=== PATIENT | female | born 1940 | race Caucasian/White ===

== ENCOUNTER 2016-10-05 17:46 | Inpatient (IN) | payer OTHER ==
--- NOTE | 2016-10-05 18:13 | PDOC ---
History of Present Illness <Jose J Almodovar - Last Filed: 10/05/16 18:32> - History of Present Illness Initial Comments: 10/05/16 18:24 76 year old female with a PMHx of HTN, HLD, type 2 diabetes who presents to the ED s/p fall today. The patient states she lost her balance and fell onto her left side. She reports associated pain on her left hip. She did not take any medications for the pain. She denies hitting her head, LOC, dizziness, headache. She denies chest pain, SOB. She denies abdominal pain, nausea, vomiting, diarrhea. Allergies: penicillin Surgeries: right knee replacement <Zulay Frank - Last Filed: 10/05/16 18:41> - General Chief Complaint: Bone Injury Stated Complaint: FALL Time Seen by Provider: 10/05/16 18:11 Past History - Past Medical History Anemia: No Asthma: No Cancer: No Cardiac Disorders: No CVA: No COPD: No CHF: No Dementia: No Diabetes: Yes (TYPE 2) GI Disorders: No Disorders: No HTN: Yes Hypercholesterolemia: Yes Liver Disease: No Seizures: No Thyroid Disease: No - Surgical History Abdominal Surgery: No Appendectomy: No Cardiac Surgery: No Cholecystectomy: No Lung Surgery: No Neurologic Surgery: No Orthopedic Surgery: Yes (PARTIAL KNEE REPLACEMENT RIGHT 2009) - Psycho/Social/Smoking Cessation Hx Anxiety: No Suicidal Ideation: No Smoking History: Never smoked Have you smoked in the past 12 months: No Information on smoking cessation initiated: No Hx Alcohol Use: No Drug/Substance Use Hx: No Substance Use Type: None Hx Substance Use Treatment: No <Jose J Almodovar - Last Filed: 10/05/16 18:32> <Zulay Frank A - Last Filed: 10/05/16 18:41> - Past Medical History Allergies/Adverse Reactions: Allergies Allergy/AdvReac Type Severity Reaction Status Date / Time Penicillins Allergy Severe Verified 10/05/16 18:01 Home Medications: Ambulatory Orders Amlodipine Besylate 5 mg PO BID 01/15/14 Atorvastatin Ca [Lipitor] 30 mg PO HS 01/15/14 Clonazepam 0.25 mg PO BID 01/15/14 Glimepiride 1 mg PO DAILY 01/15/14 Losartan Potassium 100 mg PO DAILY 01/15/14 Metoprolol Succinate [Toprol Xl] 100 mg PO BID 01/15/14 Sertraline HCl 75 mg PO HS 01/15/14 Furosemide 20 mg PO DAILY 10/05/16 Naproxen Sod/Diphenhydram HCl [Aleve Pm Caplet] 1 each PO HS 10/05/16 Review of Systems - Review of Systems Comments:: 10/05/16 18:24 GENERAL/CONSTITUTIONAL: No fever or chills. No weakness. HEAD, EYES, EARS, NOSE AND THROAT: No change in vision. No ear pain or discharge. No sore throat. CARDIOVASCULAR: No chest pain or shortness of breath. RESPIRATORY: No cough, wheezing, or hemoptysis. GASTROINTESTINAL: No nausea, vomiting, diarrhea or constipation. GENITOURINARY: No dysuria, frequency, or change in urination. MUSCULOSKELETAL: (+) left hip pain.. No neck or back pain. SKIN: No rash NEUROLOGIC: No headache, vertigo, loss of consciousness, or change in strength/ sensation. ENDOCRINE: No increased thirst. No abnormal weight change. HEMATOLOGIC/LYMPHATIC: No anemia, easy bleeding, or history of blood clots. ALLERGIC/IMMUNOLOGIC: No hives or skin allergy. <Zulay Frank - Last Filed: 10/05/16 18:41> *Physical Exam - Vital Signs Last Vital Signs Temp Pulse Resp BP Pulse Ox 98.3 F 62 20 154/71 95 10/05/16 18:02 10/05/16 18:02 10/05/16 18:02 10/05/16 18:02 10/05/16 18:02 <Jose J Almodovar - Last Filed: 10/05/16 18:32> - Vital Signs Last Vital Signs Temp Pulse Resp BP Pulse Ox 98.3 F 62 20 154/71 95 10/05/16 18:02 10/05/16 18:02 10/05/16 18:02 10/05/16 18:02 10/05/16 18:02 - Physical Exam Comments: 10/05/16 18:24 GENERAL: Awake, alert, and fully oriented, in no acute distress HEAD: No signs of trauma EYES: PERRLA, EOMI, sclera anicteric, conjunctiva clear ENT: Auricles normal inspection, hearing grossly normal, nares patent, oropharynx clear without exudates. Moist mucosa NECK: Normal ROM, supple, no lymphadenopathy, JVD, or masses LUNGS: Breath sounds equal, clear to auscultation bilaterally. No wheezes, and no crackles HEART: Regular rate and rhythm, normal S1 and S2, no murmurs, rubs or gallops ABDOMEN: Soft, nontender, normoactive bowel sounds. No guarding, no rebound. No masses EXTREMITIES: (+) left leg is externally rotated and shortened. Pulses intact 2+ bilaterally. Normal range of motion, no edema. No clubbing or cyanosis. No cords, erythema, or tenderness NEUROLOGICAL: Cranial nerves II through XII grossly intact. Normal speech, normal gait SKIN: Warm, Dry, normal turgor, no rashes or lesions noted. <Zulay Frank - Last Filed: 10/05/16 18:41> Heart Score/ECG Review #1 10/05/16 18:41 Sinus rhythm with premature complexes at 61 bpm. <Zulay Frank - Last Filed: 10/05/16 18:41> *DC/Admit/Observation/Transfer - Discharge Dispostion Admit: Yes - Attestations Physician Attestion: 10/05/16 18:13 I, Dr. Jose J Almodovar, attest that this document has been prepared under my direction and personally reviewed by me in its entirety. I further attest, that it accurately reflects all work, treatment, procedures and medical decision -making performed by me. <Jose J Almodovar - Last Filed: 10/05/16 18:32> - Attestations Scribe Attestion: 10/05/16 18:24 Documentation prepared by Zulay Frank, acting as medical staff manager for Jose J Almodovar DO. <Zulay Frank - Last Filed: 10/05/16 18:41> Diagnosis at time of Disposition: Hip fracture - Discharge Dispostion Condition at time of disposition: Improved - Referrals Referrals: Dereje Barron MD [Primary Care Provider] -
[2016-10-05] MEDS ORDERED: ONDANSETRON 4 MG/2 ML VIAL IVPUSH ONE (18:21)
[2016-10-05] MEDS ORDERED: morphine CARPU-JECT 4 MG/1 ML DISP.SYRIN IVPUSH ONE (18:21)
[2016-10-05] MEDS ORDERED: morphine CARPU-JECT 4 MG/1 ML DISP.SYRIN ONE (18:32)
[2016-10-05] MEDS ORDERED: ONDANSETRON 4 MG/2 ML VIAL ONE (18:32)
[2016-10-05 19:00] LABS: BASOPHIL 0.4 % (0-2.0); MCH 27.5 pg (25.7-33.7); MEAN CELL VOLUME 83.4 fl (80-96); MEAN PLT VOLUME 8.7 fl (7.5-11.1); NEUTROPHILS 66.1 % (42.8-82.8); PLATELET COUNT 218 K/MM3 (134-434); RDW 14.7 % (11.6-15.6); WHITE BLOOD COUNT 6.9 K/mm3 (4.0-10.0)
[2016-10-05] MEDS ORDERED: SERTRALINE HCL 50 MG TABLET (FP) PO SCH (19:00)
[2016-10-05 19:09] LABS: INR 0.97 (0.82-1.09); PROTHROMBIN TIME (PATIENT) 10.7 SEC (9.98-11.88)
[2016-10-05 19:18] LABS: ALBUMIN 4.2 g/dl (3.4-5.0); ANION GAP 8 (8-16); BILIRUBIN,TOTAL 0.3 mg/dL (0.2-1.0); CO2 29 mmol/L (21-32); CREATININE 0.7 mg/dL (0.55-1.02); GLUCOSE,RANDOM 102 mg/dL (74-106); SGOT/AST 22 U/L (15-37); SGPT/ALT 29 U/L (12-78); TOT PROT 7.4 g/dl (6.4-8.2)
[2016-10-05 19:19] LABS: ALK PHOS 83 U/L (45-117)
[2016-10-05 20:45] LABS: URINE APPEARANCE CLOUDY; URINE BILIRUBIN NEGATIVE (NEGATIVE); URINE BLOOD NEGATIVE (NEGATIVE); URINE COLOR YELLOW; URINE GLUCOSE (UA) NEGATIVE (NEGATIVE); URINE KETONE NEGATIVE (NEGATIVE); URINE LEUK ESTERASE NEGATIVE (NEGATIVE); URINE NITRITE NEGATIVE (NEGATIVE); URINE PROTEIN NEGATIVE (NEGATIVE); URINE UROBILINOGEN NEGATIVE mg/dL (0.2-1.0)
[2016-10-05 21:55] VITALS: BMI 29.5
[2016-10-05] MEDS ORDERED: ATORVASTATIN CA 20 MG TABLET (FP) PO SCH (22:00)
[2016-10-05] MEDS ORDERED: METOPROLOL TARTRATE 50 MG TABLET (FP) PO SCH (22:00)
[2016-10-05] MEDS ORDERED: oxyCODONE HCL 5 MG TABLET PO PRN (22:26)
[2016-10-05] MEDS ORDERED: ACETAMINOPHEN 325 MG TABLET (FP) PO PRN (22:26)
[2016-10-05] MEDS ORDERED: ATORVASTATIN CA 20 MG TABLET (FP) ONE (22:38)
[2016-10-05] MEDS ORDERED: ATORVASTATIN CA 10 MG TABLET (FP) ONE (22:38)
[2016-10-05] MEDS: ATORVASTATIN CA PO SCH (22:41)
[2016-10-05] MEDS: clonazePAM 0.5 MG TABLET PO SCH (22:42)
[2016-10-05] MEDS: SERTRALINE HCL 50 MG TABLET (FP) PO SCH (23:39)
[2016-10-05] MEDS: METOPROLOL TARTRATE 50 MG TABLET (FP) PO SCH (23:39)
[2016-10-06] MEDS: morphine CARPU-JECT 4 MG/1 ML DISP.SYRIN IVPUSH PRN ×3 (00:13→16:12)
[2016-10-06 09:22] LABS: BASOPHIL 0.3 % (0-2.0); EOSINOPHIL 0.4 % (0-4.5); MCH 28.1 pg (25.7-33.7); MCHC 33.6 g/dl (32.0-36.0); MEAN CELL VOLUME 83.5 fl (80-96); MEAN PLT VOLUME 8.7 fl (7.5-11.1); NEUTROPHILS 73.9 % (42.8-82.8); PLATELET COUNT 205 K/MM3 (134-434); RDW 14.5 % (11.6-15.6); WHITE BLOOD COUNT 8.4 K/mm3 (4.0-10.0)
[2016-10-06] MEDS: LOSARTAN POTASSIUM 50 MG TABLET (FP) PO SCH (12:00)
[2016-10-06] MEDS: METOPROLOL TARTRATE 50 MG TABLET (FP) PO SCH ×2 (12:01→21:00)
[2016-10-06] MEDS: amLODIPine BESYLATE 5 MG TABLET (FP) PO SCH (12:01)
[2016-10-06] MEDS: clonazePAM 0.5 MG TABLET PO SCH ×2 (12:02→21:01)
--- NOTE | 2016-10-06 13:51 | HP ---
Admitting History and Physical - Primary Care Physician PCP: Dereje Barron (Dr Raysa krause) - Admission Chief Complaint: pain Lt hip (following fall) History of Present Illness: 76 year old female with a PMHx of HTN, HLD, type 2 diabetes who presents to the ED s/p fall which took place yesterday when she lost her balance while doing yard work. The patient states fell onto her left side. She reports associated pain on her left hip. She did not take any medications for the pain. She denies hitting her head, LOC, dizziness, headache. She denies chest pain, SOB. She denies abdominal pain, nausea, vomiting, diarrhea. She was otherwise well prior to this incident. History Source: Patient Limitations to Obtaining History: No Limitations - Past Medical History Cardiovascular: Yes: HTN ...: No Psych: Yes: Anxiety Musculoskeletal: Yes: Osteoarthritis Endocrine: Yes: Diabetes Mellitus - Past Surgical History Past Surgical History: Yes: Joint Replacement - Smoking History Smoking history: Never smoked Have you smoked in the past 12 months: No - Alcohol/Substance Use Hx Alcohol Use: No History of Substance Use: reports: None - Social History Usual Living Arrangement: Yes: With Parent ADL: Independent History of Recent Travel: No Home Medications - Allergies Allergies/Adverse Reactions: Allergies Allergy/AdvReac Type Severity Reaction Status Date / Time Penicillins Allergy Severe Verified 10/05/16 18:01 - Home Medications Home Medications: Ambulatory Orders Amlodipine Besylate 5 mg PO BID 01/15/14 Atorvastatin Ca [Lipitor] 30 mg PO HS 01/15/14 Clonazepam 0.25 mg PO BID 01/15/14 Glimepiride 1 mg PO DAILY 01/15/14 Losartan Potassium 100 mg PO DAILY 01/15/14 Metoprolol Succinate [Toprol Xl] 100 mg PO BID 01/15/14 Sertraline HCl 75 mg PO HS 01/15/14 Furosemide 20 mg PO DAILY 10/05/16 Naproxen Sod/Diphenhydram HCl [Aleve Pm Caplet] 1 each PO HS 10/05/16 Family Disease History - Family Disease History Family History: Unremarkable Review of Systems - Review of Systems Constitutional: reports: No Symptoms Eyes: reports: No Symptoms HENT: reports: No Symptoms Neck: reports: No Symptoms Cardiovascular: reports: No Symptoms Respiratory: reports: No Symptoms Gastrointestinal: reports: No Symptoms Genitourinary: reports: No Symptoms Breasts: reports: No Symptoms Reported Musculoskeletal: reports: Extremity Pain Integumentary: reports: No Symptoms Neurological: reports: No Symptoms Endocrine: reports: No Symptoms Hematology/Lymphatic: reports: No Symptoms Psychiatric: reports: No Symptoms Physical Examination Vital Signs: Vital Signs Temperature 98.2 F 10/06/16 08:00 Pulse Rate 72 10/06/16 08:00 Respiratory Rate 18 10/06/16 08:00 Blood Pressure 129/69 10/06/16 08:00 O2 Sat by Pulse Oximetry (%) 97 10/05/16 21:58 Findings/Remarks: skin--no open wounds appreciated head--NC eyes--midline, eomi oral--no droop/muc lesions neck--no masses appreciated lungs--grossly clear/unlabored resp heart--RR breasts--(def to PCP) abd--soft, NT, ND ext--LLE; shortened and ext rotated; Pedal pulses palpated; no edema neuro--alert; coherent; lucid; speech is fluent; cognition intact; no gross motor/sens deficits Labs: CBC, BMP 10/06/16 06:00 CBCD WBC 8.4 K/mm3 (4.0-10.0) 10/06/16 06:00 RBC 4.29 M/mm3 (3.60-5.2) 10/06/16 06:00 Hgb 12.0 GM/dL (10.7-15.3) 10/06/16 06:00 Hct 35.9 % (32.4-45.2) 10/06/16 06:00 MCV 83.5 fl (80-96) 10/06/16 06:00 MCHC 33.6 g/dl (32.0-36.0) 10/06/16 06:00 RDW 14.5 % (11.6-15.6) 10/06/16 06:00 Plt Count 205 K/MM3 (134-434) 10/06/16 06:00 MPV 8.7 fl (7.5-11.1) 10/06/16 06:00 CMP Sodium 140 mmol/L (136-145) 10/05/16 18:20 Potassium 3.4 mmol/L (3.5-5.1) L D 10/05/16 18:20 Chloride 103 mmol/L (98-107) 10/05/16 18:20 Carbon Dioxide 29 mmol/L (21-32) 10/05/16 18:20 Anion Gap 8 (8-16) 10/05/16 18:20 BUN 23 mg/dL (7-18) H 10/05/16 18:20 Creatinine 0.7 mg/dL (0.55-1.02) D 10/05/16 18:20 Creat Clearance w eGFR > 60 (>60) 10/05/16 18:20 Random Glucose 102 mg/dL (74-106) D 10/05/16 18:20 Calcium 9.0 mg/dL (8.5-10.1) 10/05/16 18:20 Total Bilirubin 0.3 mg/dL (0.2-1.0) D 10/05/16 18:20 AST 22 U/L (15-37) 10/05/16 18:20 ALT 29 U/L (12-78) 10/05/16 18:20 Alkaline Phosphatase 83 U/L (45-117) 10/05/16 18:20 Total Protein 7.4 g/dl (6.4-8.2) 10/05/16 18:20 Albumin 4.2 g/dl (3.4-5.0) 10/05/16 18:20 INR, PTT INR 0.97 (0.82-1.09) 10/05/16 18:20 Urine Test Results Urine Color Yellow 10/05/16 18:20 Urine Appearance Cloudy 10/05/16 18:20 Urine pH 8.0 (5.0-8.0) D 10/05/16 18:20 Ur Specific [place] 1.015 (1.005-1.025) 10/05/16 18:20 Urine Protein Negative (NEGATIVE) 10/05/16 18:20 Urine Glucose (UA) Negative (NEGATIVE) 10/05/16 18:20 Urine Ketones Negative (NEGATIVE) 10/05/16 18:20 Urine Blood Negative (NEGATIVE) 10/05/16 18:20 Urine Nitrite Negative (NEGATIVE) 10/05/16 18:20 Urine Bilirubin Negative (NEGATIVE) 10/05/16 18:20 Ur Leukocyte Esterase Negative (NEGATIVE) 10/05/16 18:20 Imaging - Results Chest X-ray: Report Reviewed X-ray: Report Reviewed (Lt hip Fx) EKG: Report Reviewed Problem List - Problems (1) Hip fracture Assessment/Plan: 2nd mechanical fall; will need surg intervention & rehab Code(s): S72.009A - FRACTURE OF UNSP PART OF NECK OF UNSP FEMUR, INIT Qualifiers: Encounter type: initial encounter Fracture type: closed Laterality : left Qualified Code(s): S72.002A - Fracture of unspecified part of neck of left femur, initial encounter for closed fracture (2) Hypertensive cardiovascular disease Assessment/Plan: BP and clinical condition appear to be stable. Will have cardiology eval done pre-op; cont BB & ARB Code(s): I11.9 - HYPERTENSIVE HEART DISEASE WITHOUT HEART FAILURE Qualifiers: Heart failure presence: without heart failure Qualified Code(s): I11.9 - Hypertensive heart disease without heart failure (3) Diabetes Assessment/Plan: controlled with glimepiride; will need to suspend use pre-op and check BGM Code(s): E11.9 - TYPE 2 DIABETES MELLITUS WITHOUT COMPLICATIONS Qualifiers: Diabetes mellitus type: type 2 Diabetes mellitus complication status: without complication (4) Affective disorder Assessment/Plan: mixed, anxiety; but seems stable at this point. Controlled with SSRI and clonazapam Code(s): F39 - UNSPECIFIED MOOD [AFFECTIVE] DISORDER Assessment/Plan 76 y/o F with hx of Htn & DM who now has a Lt Hip fx requiring surgery. ~~~~~~~~~~~~~~~~~~~~~~~~~~ Dr Tabares............1 hr
[2016-10-06] MEDS ORDERED: KCL 10 MEQ IVPB 100 ML IVPB SCH (14:30)
[2016-10-06 16:57] LABS: ANION GAP 7 (8-16); CALCIUM 8.5 mg/dL (8.5-10.1); CO2 29 mmol/L (21-32); CREATININE 0.6 mg/dL (0.55-1.02); GLUCOSE,RANDOM 112 mg/dL (74-106)
--- NOTE | 2016-10-06 18:21 | PN ---
Progress Note (short form) - Note Progress Note: Pt seen and examined. She fell in the garden this morning. Could not ambulate. C /o pain left thigh/femur. PE LLE is shortened and externally rotated Grossly NVI Good ROM with min pain at the left knee, ankle, foot, toes No sig swelling. Xrays Show a Imp As above: left femur subtroch fracture, needs surgical fixation Rec Medical and cardiac clearance done. NPO after midnight Rec a Left Long Gamma Nail, intramedullary nail. Surgery tomorrow morning, outside equipment needs to come in. I spoke to the [facility] trauma rep, and nursing corrugator supervisor.
[2016-10-06] MEDS ORDERED: ATORVASTATIN CA 20 MG TABLET (FP) ONE (20:56)
[2016-10-06] MEDS ORDERED: ATORVASTATIN CA 10 MG TABLET (FP) ONE (20:56)
[2016-10-06] MEDS: ATORVASTATIN CA PO SCH (21:00)
[2016-10-06] MEDS: SERTRALINE HCL 50 MG TABLET (FP) PO SCH (21:01)
[2016-10-07] MEDS: morphine CARPU-JECT 4 MG/1 ML DISP.SYRIN IVPUSH PRN ×2 (03:15→20:30)
[2016-10-07 08:10] LABS: MCH 28.5 pg (25.7-33.7); MCHC 33.9 g/dl (32.0-36.0); MEAN CELL VOLUME 83.9 fl (80-96); MEAN PLT VOLUME 8.5 fl (7.5-11.1); PLATELET COUNT 197 K/MM3 (134-434); RDW 14.6 % (11.6-15.6)
[2016-10-07 08:33] LABS: ANION GAP 5 (8-16); CALCIUM 8.2 mg/dL (8.5-10.1); CO2 31 mmol/L (21-32); GLUCOSE,RANDOM 111 mg/dL (74-106)
[2016-10-07 08:34] LABS: CREATININE 0.6 mg/dL (0.55-1.02)
[2016-10-07] MEDS: amLODIPine BESYLATE 5 MG TABLET (FP) PO SCH ×2 (08:48→09:48)
[2016-10-07] MEDS: LOSARTAN POTASSIUM 50 MG TABLET (FP) PO SCH ×2 (08:48→09:47)
[2016-10-07] MEDS: METOPROLOL TARTRATE 50 MG TABLET (FP) PO SCH ×3 (08:49→22:29)
[2016-10-07] MEDS: clonazePAM 0.5 MG TABLET PO SCH ×2 (09:47→22:29)
[2016-10-07] MEDS ORDERED: ONDANSETRON 4 MG/2 ML VIAL IVPUSH PRN ×2 (11:39→16:34)
[2016-10-07] MEDS ORDERED: MIDAZOLAM HCL 2 MG/2 ML SINGLE DOSE VIAL ONE ×2 (11:55→14:21)
[2016-10-07] MEDS ORDERED: CLINDAMYCIN PHOSPHATE 600 MG/4 ML VIAL ONE (12:29)
[2016-10-07] MEDS ORDERED: PHENYLEPHRINE HCL 10 MG/1 ML SINGLE DOSE VIAL ONE (12:29)
[2016-10-07] MEDS ORDERED: CLINDAMYCIN 600 MG PREMIX BAG IVPB ONE (12:34)
[2016-10-07] MEDS ORDERED: PROPOFOL 20 ML ONE (12:36)
[2016-10-07] MEDS ORDERED: ePHEDrine SULFATE 50 MG/1 ML AMPULE ONE (15:22)
--- NOTE | 2016-10-07 15:24 | OP ---
Operative Note - Note: Operative Date: 10/07/16 Pre-Operative Diagnosis: left femur, comminuted, displaced proximal femur fracture Operation: left femur ORIF with intramedullary nail Implants: Sutton Gamma 3 Titanium 340mm IM obed, 75mm lag screw, 35mm distal locking screw Surgeon: Greg Whitman Anesthesiologist/HIV NURSE: Noreen Temple Anesthesia: General, Spinal Estimated Blood Loss (mls): 500 Blood Volume Replaced (mls): 250 Fluid Volume Replaced (mls): 1,000 Operative Report Dictated: Yes
--- NOTE | 2016-10-07 15:25 | PN ---
Progress Note (short form) - Note Progress Note: S: 76 year old Portugese female with known case of hypertension, NIDDM, hypercholesterolemia, underwent surgery for a fracture of the left femur. Patient seen in the recovery room, still under the effects of anesthesia and had significant blood loss according to the orthopedic surgeon. The patient is hypertensive and is receiving fluid replaced and waiting to be transfused with another unit of packed cells. Active Medications Generic Name Dose Route Start Last Admin Trade Name Freq PRN Reason Stop Dose Admin Amlodipine Besylate 5 mg 10/06/16 10:00 10/07/16 09:48 Norvasc - PO Not Given DAILY DMITRIY Atorvastatin Calcium 20 mg/ 30 mg 10/05/16 22:30 10/06/16 21:00 Atorvastatin Calcium 10 mg PO 30 mg HS DMITRIY Administration Clonazepam 0.25 mg 10/05/16 22:00 10/07/16 09:47 Klonopin - PO Not Given BID DMIRTIY Losartan Potassium 100 mg 10/06/16 10:00 10/07/16 09:47 Cozaar - PO Not Given DAILY DMITRIY Metoprolol Tartrate 100 mg 10/06/16 10:00 10/07/16 09:47 Lopressor - PO Not Given DAILY DMITRIY Metoprolol Tartrate 50 mg 10/06/16 22:00 10/06/16 21:00 Lopressor - PO 50 mg HS DMITRIY Administration Morphine Sulfate 4 mg 10/05/16 23:56 10/07/16 03:15 Morphine Injection - IVPUSH 4 mg Q6H PRN Administration PAIN Ondansetron HCl 4 mg 10/07/16 11:39 Zofran Injection IVPUSH 10/07/16 17:40 Q6H PRN NAUSEA AND/OR VOMITING Sertraline HCl 50 mg 10/05/16 23:15 10/06/16 21:01 Zoloft - PO 50 mg HS DMITRIY Administration O: 76 year old female was in no acute distress. No pallor, cyanosis, clubbing, or jaundice, slightly clammy but warm. Blood pressure 82/59. Last Vital Signs Temp Pulse Resp BP Pulse Ox 98.4 F 85 20 137/50 100 10/07/16 08:00 10/07/16 08:00 10/07/16 08:00 10/07/16 08:00 10/07/16 09:00 NECK: Supple, no JVD, negative HJR, carotids were equal and upstrokes were normal, no thyromegaly appreciated. HEART: PMI was in the 5th intercostal space, no heaves or thrills, S1 and S2 were normal. No murmurs or gallops were appreciated. LUNGS: Clear on auscultation bilaterally. ABDOMEN: Soft, nontender, no hepatosplenomegaly appreciated, and no palpable masses were felt. EXTREMITIES: No calf tenderness or dependent edema. Pulses are normal. CBC, BMP 10/07/16 06:20 10/07/16 06:20 Laboratory Results - last 24 hr 10/06/16 10/06/16 10/06/16 16:15 16:23 20:48 WBC RBC Hgb Hct MCV MCH MCHC RDW Plt Count MPV Sodium 138 Potassium 3.8 Chloride 102 Carbon Dioxide 29 Anion Gap 7 L BUN 19 H Creatinine 0.6 POC Glucometer 121 182 Random Glucose 112 H Calcium 8.5 Blood Type Crossmatch IS Only 10/07/16 10/07/16 10/07/16 05:58 06:20 06:20 WBC 8.0 RBC 4.17 Hgb 11.9 Hct 35.0 MCV 83.9 MCH 28.5 MCHC 33.9 RDW 14.6 Plt Count 197 MPV 8.5 Sodium 139 Potassium 3.9 Chloride 103 Carbon Dioxide 31 Anion Gap 5 L BUN 17 Creatinine 0.6 POC Glucometer 120 Random Glucose 111 H Calcium 8.2 L Blood Type Crossmatch IS Only 10/07/16 08:45 WBC RBC Hgb Hct MCV MCH MCHC RDW Plt Count MPV Sodium Potassium Chloride Carbon Dioxide Anion Gap BUN Creatinine POC Glucometer Random Glucose Calcium Blood Type O POSITIVE Crossmatch IS Only See Detail ECG 10/07/16 15:37 Sinus rhythm, IACD, nonspecific ST abnormalities involving the lateral precardial leads Impression: 1. Hypotension, most likely related to blood and volume loss. 2. S/p repair of fracture of the femur Recommendations: 1. ECG stat and in AM 2. CKMI now, in six hours, and in AM 3. CMP and follow up CBCs 4. Monitor on telemetry Prognosis: Guarded Documentation prepared by Bety Ramos, acting as a medical technicians for Ryan Walker MD. Problem List - Problems (1) Hip fracture Code(s): S72.009A - FRACTURE OF UNSP PART OF NECK OF UNSP FEMUR, INIT Qualifiers: Encounter type: initial encounter Fracture type: closed Laterality : left Qualified Code(s): S72.002A - Fracture of unspecified part of neck of left femur, initial encounter for closed fracture (2) Non-insulin dependent type 2 diabetes mellitus Code(s): E11.9 - TYPE 2 DIABETES MELLITUS WITHOUT COMPLICATIONS (3) Hypotension Code(s): I95.9 - HYPOTENSION, UNSPECIFIED
--- NOTE | 2016-10-07 15:55 | EKG ---
Test Reason : Blood Pressure : / mmHG Vent. Rate : 101 BPM Atrial Rate : 101 BPM P-R Int : 160 ms QRS Dur : 072 ms QT Int : 372 ms P-R-T Axes : 045 038 018 degrees QTc Int : 482 ms SINUS TACHYCARDIA WITH PREMATURE ATRIAL COMPLEXES SLIGHT UPSLOPING ST DEPRESSIONS IN V5-V6 WHEN COMPARED WITH ECG OF 05-OCT-2016 18:37, VENT. RATE HAS INCREASED BY 40 BPM CORRELATE CLINICALLY AND REPEAT TRACING INDICATED Confirmed by ERNESTO BENEDICT MD ([id number]) on 10/07/2016 3:55:18 PM Referred By: Don IBRAHIM Confirmed By:ERNESTO BENEDICT MD
[2016-10-07] MEDS ORDERED: ONDANSETRON 4 MG/2 ML VIAL ONE (16:22)
[2016-10-07 17:26] LABS: CPK 816 IU/L (26-192); TROPONIN I < 0.02 ng/ml (0.00-0.05)
[2016-10-07 17:40] LABS: ANION GAP 10 (8-16); CALCIUM 7.7 mg/dL (8.5-10.1); CO2 27 mmol/L (21-32); GLUCOSE,RANDOM 131 mg/dL (74-106)
--- NOTE | 2016-10-07 18:46 | EKG ---
Test Reason : Blood Pressure : / mmHG Vent. Rate : 061 BPM Atrial Rate : 061 BPM P-R Int : 202 ms QRS Dur : 088 ms QT Int : 472 ms P-R-T Axes : 062 054 027 degrees QTc Int : 475 ms SINUS RHYTHM WITH PREMATURE ATRIAL COMPLEXES OTHERWISE NORMAL ECG WHEN COMPARED WITH ECG OF 15-JAN-2014 11:43, PREMATURE ATRIAL COMPLEXES ARE NOW PRESENT Confirmed by ERNESTO BENEDICT MD ([id number]) on 10/07/2016 6:46:17 PM Referred By: Confirmed By:ERNESTO BENEDICT MD
[2016-10-07 19:23] LABS: BASOPHIL 0.3 % (0-2.0); EOSINOPHIL 0.1 % (0-4.5); MCH 27.6 pg (25.7-33.7); MEAN CELL VOLUME 83.5 fl (80-96); MEAN PLT VOLUME 8.3 fl (7.5-11.1); NEUTROPHILS 82.3 % (42.8-82.8); PLATELET COUNT 209 K/MM3 (134-434); WHITE BLOOD COUNT 11.1 K/mm3 (4.0-10.0)
--- NOTE | 2016-10-07 19:40 | CONS ---
DATE OF CONSULTATION: 10/06/2016 REQUESTING PHYSICIAN: Jass Tabares MD CHIEF COMPLAINT: Fracture of the left hip. HISTORY: The patient is a 76-year-old Bengali female with a history of hypertension, [id number] diabetes mellitus, hypercholesterolemia, history of depression and anxiety disorder who slipped at home and fell fracturing her left hip. The patient denies having chest pain or discomfort either at rest or with exertion. No exertional dyspnea, paroxysmal or nocturnal dyspnea, or orthopnea. No history of palpitations, lightheadedness, dizziness, presyncope, or syncope reported. No cough or expectoration. There is no history of pedal edema. PAST HISTORY: As mentioned in the history of present illness. SURGICAL HISTORY: Partial right knee replacement. SOCIAL HISTORY: She is a . Has 1 son. She is a nonsmoker. Denies use of alcohol. Has 1 cup of coffee. FAMILY HISTORY: Father from myocardial infarction. Mother has high blood pressure. She has no siblings. ALLERGIES: PENICILLIN. MEDICATIONS: 1. 100 mg p.o. daily. 2. Metoprolol Tartrate 100 mg in the morning and 50 mg in the evening. 3. Amlodipine 5 mg p.o. daily. 4. Atorvastatin 30 mg p.o. daily. 5. Morphine 4 mg IV q.6 p.r.n. 6. Zoloft 50 mg p.o. daily nightly. 7. Klonopin 0.25 mg p.o. b.i.d. 8. Potassium chloride 10 mEq IV piggyback single dose. REVIEW OF SYSTEMS: Constitutional: No history of chills, fever, or night sweats. No history of unintentional weight loss. HEENT: History of chronic intermittent headaches. No history of diplopia, blurred vision. No history of epistaxis, hoarseness, tinnitus, or deafness reported. Cardiovascular: See history of present illness. Respiratory: History of cough, expectoration, or hemoptysis. Gastrointestinal: No history of nausea, melena, or hematemesis. No history of abdominal pain or discomfort. No history of change in bowel habits. Endocrine: See history of present illness. No history of polyuria or polydipsia. No history of intolerance of cold or warm weather. Central Nervous System: No history of lightheadedness, dizziness, or syncope. No history of seizures or focal weakness. Genitourinary: No history of dysuria, frequency, or hematuria. Hematological/Lymphatics: No history of ecchymosis, bleeding, or anemia. No history of lymphadenopathy. PHYSICAL EXAMINATION: General: A 76-year-old female who is in no acute distress. No pallor, cyanosis, clubbing, or jaundice. Vital Signs: Blood pressure 129/69 mmHg, pulse 72 beats per minute and regular. The patient is afebrile. Respirations are 18 per minute. Weight is not recorded. Neck: Supple. No jugular venous distention. Carotids are equal, and upstrokes are normal. No bruits are heard, and no thyromegaly is present. Heart: PMI is in the 5th intercostal space. No heaves or thrills. S1, S2 are normal. Ejection systolic murmur grade 2/6 is heard at the 2nd right intercostal space ending in early systole and was also heard along the left sternal border. No diastolic murmur or gallops are heard. Lungs: Clear on auscultation. Chest: Normal AP diameter. Expansion grossly appears to be symmetrical. Abdomen: Protuberant, soft, and nontender. No hepatosplenomegaly or palpable masses are felt. Bowel sounds are active. No bruits are heard. Extremities: No calf tenderness or dependent edema. Left lower extremity is externally rotated. Pulses are equal. LABORATORY DATA: October 06, 2016. CBC: WBC count 8400, hemoglobin 12 g/dL, platelet count 205,000. Normal differential. Chemistry October 05, 2016: Sodium 140, potassium 3.4, chloride 103, CO2 is 29 mmol/L, calcium 9 mg/dL. Normal liver function tests. Glucose on October 06 was 131 mg/dL. X-ray chest. A single view of the chest revealed little change since January 15, 2014. There is a large heart, scoliosis, degenerative changes, and clear lung harrington. The angles are soft, and the soft tissue is intact. An acute process is not seen. Correlation recommended. ECG dated October 05, 2016: Sinus rhythm with intra-atrial conduction abnormality. Borderline 1st-degree AV block. Occasional supraventricular premature beats that are single. Nonspecific ST abnormality. No previous ECG was available for comparison. IMPRESSION: 1. Hypertension, hypertensive cardiovascular disease currently normotensive. 2. Hypercholesterolemia. 3. Fpp-[id number] diabetes mellitus. 4. Supraventricular premature beats. 5. Systolic murmur compatible with aortic valvular disease most likely aortic sclerosis. 6. Left hip fracture. 7. History of depression. 8. Hypokalemia. RECOMMENDATION: 1. Recheck serum potassium levels. 2. INR, PTT. 3. The patient must receive all her antihypertensive therapy with a sip of water on the day of the contemplated procedure. 4. Would suggest postoperative monitoring on telemetry. 5. . 6. Postoperative ECG. 7. There appears to be no absolute contraindication to the contemplated procedure. Thank you for your referral. Sincerely, ERNESTO BENEDICT M.D. [id number]
[2016-10-07] MEDS: DEXTROSE 5%-0.45% SALINE 1,000 ML IV SCH (20:02)
[2016-10-07] MEDS: ONDANSETRON 4 MG/2 ML VIAL IVPB PRN (20:03)
[2016-10-07] MEDS ORDERED: PANTOPRAZOLE SODIUM 40 MG in SODIUM CHLORIDE 100 ML IVPB SCH (21:00)
[2016-10-07] MEDS ORDERED: ATORVASTATIN CA 20 MG TABLET (FP) ONE (22:10)
[2016-10-07] MEDS ORDERED: ATORVASTATIN CA 10 MG TABLET (FP) ONE (22:10)
[2016-10-07] MEDS: PANTOPRAZOLE SODIUM 40 MG/100 ML PRE-DOCKED IVPB SCH (22:18)
[2016-10-07] MEDS: ATORVASTATIN CA PO SCH (22:19)
[2016-10-07] MEDS: SERTRALINE HCL 50 MG TABLET (FP) PO SCH (22:19)
[2016-10-07 22:33] LABS: CPK 1198 IU/L (26-192); TROPONIN I < 0.02 ng/ml (0.00-0.05)
--- NOTE | 2016-10-08 00:02 | PN ---
Progress Note, Physician History of Present Illness: 76 y/o who fell in her backyard and sustained a fracture of her left femur and underwent internal fixation today. Continues to have pain at site of surgery and is being treated with MS, Became nauseous and was given Zofran for relief. - Current Medication List Current Medications: Active Medications Amlodipine Besylate (Norvasc -) 5 mg PO DAILY [facility] Atorvastatin Calcium 20 mg/ (Atorvastatin Calcium 10 mg) [address] [facility] Last Admin: 10/07/16 22:19 Dose: 30 mg Clonazepam (Klonopin -) 0.25 mg PO BID [facility] Last Admin: 10/07/16 22:29 Dose: 0.25 mg Dextrose/Sodium Chloride (D5-1/2ns -) 1,000 mls @ 85 mls/hr IV ASDIR [facility] Last Admin: 10/07/16 20:02 Dose: Not Given Losartan Potassium (Cozaar -) 100 mg PO DAILY [facility] Metoprolol Tartrate (Lopressor -) [address] [facility] Last Admin: 10/07/16 22:29 Dose: Not Given Metoprolol Tartrate (Lopressor -) 100 mg PO DAILY [facility] Morphine Sulfate (Morphine Injection -) 4 mg IVPUSH Q6H PRN PRN Reason: PAIN Last Admin: 10/07/16 20:30 Dose: 4 mg Ondansetron HCl (Zofran Injection) 4 mg IVPB Q6H PRN PRN Reason: NAUSEA AND/OR VOMITING Last Admin: 10/07/16 20:03 Dose: 4 mg Pantoprazole Sodium (Protonix 40mg Ivpb (Pre-Docked)) 40 mg IVPB DAILY [facility] Last Admin: 10/07/16 22:18 Dose: 40 mg Sertraline HCl (Zoloft -) [address] [facility] Last Admin: 10/07/16 22:19 Dose: 50 mg - Objective Vital Signs: Vital Signs Temperature 97.6 F 10/07/16 18:30 Pulse Rate 79 10/07/16 18:30 Respiratory Rate 18 10/07/16 18:30 Blood Pressure 122/50 10/07/16 18:30 O2 Sat by Pulse Oximetry (%) 98 10/07/16 18:30 Constitutional: Yes: Well Nourished, Calm, Moderate Distress Eyes: Yes: WNL, Conjunctiva Clear, EOM Intact HENT: Yes: WNL Neck: Yes: Supple, Trachea Midline Cardiovascular: Yes: Regular Rate and Rhythm, S1, S2 Respiratory: Yes: WNL, Regular, CTA Bilaterally Gastrointestinal: Yes: Normal Bowel Sounds, Soft Genitourinary: Yes: WNL Breast(s): Yes: WNL Musculoskeletal: Yes: WNL Edema: No Peripheral Pulses WNL: Yes Integumentary: Yes: WNL Neurological: Yes: Alert, Oriented ...Motor Strength: WNL Psychiatric: Yes: Alert, Oriented Labs: CBC, BMP 10/07/16 19:15 10/07/16 16:00 INR, PTT INR 0.97 (0.82-1.09) 10/05/16 18:20 - ....Imaging X-ray: Report Reviewed, Image Reviewed Problem List - Problems (1) Hypertensive cardiovascular disease Code(s): I11.9 - HYPERTENSIVE HEART DISEASE WITHOUT HEART FAILURE Qualifiers: Heart failure presence: without heart failure Qualified Code(s): I11.9 - Hypertensive heart disease without heart failure (2) Fracture, femur closed, shaft Assessment/Plan: underwent internal fixation Code(s): S72.309A - UNSP FRACTURE OF SHAFT OF UNSP FEMUR, INIT FOR CLOS FX (3) Affective disorder Assessment/Plan: is on clonazepam and zoloft and doing well Code(s): F39 - UNSPECIFIED MOOD [AFFECTIVE] DISORDER (4) Non-insulin dependent type 2 diabetes mellitus Assessment/Plan: well controlled with glimepiride Code(s): E11.9 - TYPE 2 DIABETES MELLITUS WITHOUT COMPLICATIONS Assessment/Plan imp : Fracture left femur shaft Hypertension Anxiety disorder Diabetes Mellitus type II Underwent internal fixation today succesfully.
[2016-10-08] MEDS: morphine CARPU-JECT 4 MG/1 ML DISP.SYRIN IVPUSH PRN ×3 (05:25→16:57)
[2016-10-08 08:39] LABS: TROPONIN I < 0.02 ng/ml (0.00-0.05)
[2016-10-08 08:42] LABS: CPK 1303 IU/L (26-192)
[2016-10-08 09:12] LABS: BASOPHIL 0.3 % (0-2.0); EOSINOPHIL 0.2 % (0-4.5); MCH 28.2 pg (25.7-33.7); MEAN CELL VOLUME 82.9 fl (80-96); MEAN PLT VOLUME 9.7 fl (7.5-11.1); NEUTROPHILS 75.5 % (42.8-82.8); PLATELET COUNT 137 K/MM3 (134-434); WHITE BLOOD COUNT 7.9 K/mm3 (4.0-10.0)
[2016-10-08 09:22] LABS: ALBUMIN 2.6 g/dl (3.4-5.0); ANION GAP 9 (8-16); BILIRUBIN,TOTAL 0.6 mg/dL (0.2-1.0); CALCIUM 7.6 mg/dL (8.5-10.1); CO2 24 mmol/L (21-32); CREATININE 0.8 mg/dL (0.55-1.02); GLUCOSE,RANDOM 172 mg/dL (74-106); SGOT/AST 41 U/L (15-37); SGPT/ALT 27 U/L (12-78)
[2016-10-08 09:25] LABS: ALK PHOS 46 U/L (45-117)
--- NOTE | 2016-10-08 09:28 | PN ---
Progress Note (short form) - Note Progress Note: Ortho Pt seen and examined s/p left IM gamma nail Selected Entries 10/08/16 05:18 Temperature 98.7 F Pulse Rate 102 H Respiratory 20 Rate Blood Pressure 118/60 Laboratory Tests 10/08/16 07:40 WBC 7.9 Hgb 10.0 L D Hct 29.4 L D Plt Count 137 D dressing c/d/i, calf soft, nt nvi a/p PT, PWB dvt ppx pain control d/c planning
--- NOTE | 2016-10-08 09:49 | EKG ---
Test Reason : Blood Pressure : / mmHG Vent. Rate : 103 BPM Atrial Rate : 103 BPM P-R Int : 158 ms QRS Dur : 080 ms QT Int : 364 ms P-R-T Axes : 035 018 002 degrees QTc Int : 476 ms SINUS TACHYCARDIA WITH PREMATURE ATRIAL COMPLEXES OTHERWISE NORMAL ECG WHEN COMPARED WITH ECG OF 07-OCT-2016 15:37, T WAVE VARIATION Confirmed by CRISTINO TEJADA MD ([id number]) on 10/08/2016 9:49:03 AM Referred By: SHEIK OROZCO DRH Confirmed By:CRISTINO TEJADA MD
[2016-10-08] MEDS: amLODIPine BESYLATE 5 MG TABLET (FP) PO SCH (11:03)
[2016-10-08] MEDS: LOSARTAN POTASSIUM 50 MG TABLET (FP) PO SCH (11:04)
[2016-10-08] MEDS: clonazePAM 0.5 MG TABLET PO SCH ×2 (11:04→22:10)
[2016-10-08] MEDS: METOPROLOL TARTRATE 50 MG TABLET (FP) PO SCH ×2 (11:04→22:11)
[2016-10-08] MEDS: ONDANSETRON 4 MG/2 ML VIAL IVPB PRN ×2 (11:05→16:58)
[2016-10-08] MEDS: PANTOPRAZOLE SODIUM 40 MG/100 ML PRE-DOCKED IVPB SCH (11:05)
--- NOTE | 2016-10-08 13:14 | PN ---
Progress Note (short form) - Note Progress Note: Anesthesia post op note, POD#1 Pat seen and examined. S/P ORIF left femur under Spinal. VSS. Motor and sensory lower extremities,intact bilaterally.No apparent post anesthesia complications.Signed off.
[2016-10-08] MEDS: DEXTROSE 5%-0.45% SALINE 1,000 ML IV SCH (18:21)
--- NOTE | 2016-10-08 19:21 | OP ---
DATE OF OPERATION: 10/07/2016 PREOPERATIVE DIAGNOSIS: Left femur segmental displaced proximal diaphysis fracture. POSTOPERATIVE DIAGNOSIS: Left femur segmental displaced proximal diaphysis fracture. PROCEDURE: Left femur open reduction internal fixation with intramedullary nail. SURGEON: Omar Moreno MD HEALTH INFORMATION CODER: None. ANESTHESIA: Dr. Purdy, spinal anesthesia and MAC anesthesia. DRAINS: None. COMPLICATIONS: None. BLOOD LOSS: 500 mL. BLOOD GIVEN: 1 unit packed red blood cells in the operating room and 1 unit packed red blood cells in the recovery room. SPECIMEN: None. DRAIN: None. FLUID REPLACEMENT: 1000 mL. INDICATIONS: This patient is a 76-year-old female with a preoperative diagnosis of a displaced comminuted left proximal femur fracture with a butterfly fragment. After understanding the potential risks, complications, alternatives, and benefits to surgery versus nonsurgical treatment, she and her family patient elected to undergo this procedure. DESCRIPTION OF PROCEDURE: The patient was brought to the operating room. Peripheral IV placed. IV sedation given. Then 600 mg of clindamycin was given. She was placed onto the fracture table with ample padding on the ankles and the perineal post. Longitudinal traction was applied in internal rotation. X-rays were taken in the AP and lateral planes. There was significant displacement of several fracture fragments and likely it would be necessary to open with an extra lateral incision. The left lower extremity was prepped and draped in a sterile fashion. Incision was made with a No. 15 scalpel blade. Subcutaneous hemostasis achieved with bipolar electrocautery. Dissection done through the proximal lateral fascia. Nolan elevator was used to clear the top portion of the greater trochanter. Using a threaded guidewire, I put it down through the proximal fragment. The distal fragment was very displaced. It was very posterior. The patient is extremely short, approximately 4 feet 10 inches, and her thigh was very short with a significant bow. Therefore, after several attempts, an additional lateral incision was made. Subcutaneous hemostasis was achieved with a Bovie cautery. Dissection through the lateral fascia. Dissection through the lateral aspect of the femur. Hematoma was washed out. Fracture site was directly visualized. Muscle and periosteal debris was removed from the fracture site. Using a Verbrugge clamp, reduction was performed, and a ball-tipped guidewire was placed through the proximal aspect of the femur past all of the fracture sites. AP and lateral and multiple x-rays documented that it was in the medullary position in every plane. Next, because it was so unstable and tended to move, Verbrugge clamp could not hold it in place. I put on 2 cerclage wires using the Dall-Miles cables. This held the butterfly fracture in place. It was very helpful. We also had to use a crutch to push up on the fracture site prior to this. Next, I was able to pass the ball-tipped guidewire past all the fracture sites and use the proximal reamer to open up the proximal aspect. Then using sequential flexible reamers from 6-12, we reamed the medullary canal past the isthmus. Next, a titanium intramedullary obed long left 340-mm Vanlue Gamma nail was put down, tacked into place to the appropriate place. Then using a standard jig in a standard fashion, I put in a 75-mm lag screw, which I locked in place, which was in a good position through the femoral neck and head. Traction was taken off. Using the perfect circles technique, I put in a distal 35-mm locking screw. Final x-rays were taken in multiple planes. The quality of the reduction was quite good. There was about 500 mL of blood loss. The area was copiously irrigated and washed out. The lateral fascia was closed with 0 Vicryl suture. The deep adipose layer was closed with 0 Vicryl suture, 2-0 Vicryl was used to close the deep dermal layer. Final skin reapproximation was done with concha. The area was then washed and dried, covered with Xeroform, 4x4 gauze, ABD and tape. Total operative time was 2 hours 25 minutes. There were no complications during the case. The patient tolerated the procedure well and was brought to the regular recovery room in stable condition. OMAR MORENO M.D. [id number]
[2016-10-08] MEDS ORDERED: ATORVASTATIN CA 20 MG TABLET (FP) ONE (22:07)
[2016-10-08] MEDS ORDERED: ATORVASTATIN CA 10 MG TABLET (FP) ONE (22:07)
[2016-10-08] MEDS: ATORVASTATIN CA PO SCH (22:10)
[2016-10-08] MEDS: SERTRALINE HCL 50 MG TABLET (FP) PO SCH (22:11)
--- NOTE | 2016-10-08 22:59 | PN ---
Progress Note, Physician History of Present Illness: Post op day #2. Pain if thigh is less. Stood up this AM but had terrible pain in posterior thigh area. Denies chest pain or SOB - Current Medication List Current Medications: Active Medications Amlodipine Besylate (Norvasc -) 5 mg PO DAILY [facility] Last Admin: 10/08/16 11:03 Dose: 5 mg Atorvastatin Calcium 20 mg/ (Atorvastatin Calcium 10 mg) 30 mg PO HS [facility] Last Admin: 10/08/16 22:10 Dose: 30 mg Clonazepam (Klonopin -) 0.25 mg PO BID [facility] Last Admin: 10/08/16 22:10 Dose: 0.25 mg Dextrose/Sodium Chloride (D5-1/2ns -) 1,000 mls @ 85 mls/hr IV ASDIR [facility] Last Admin: 10/08/16 18:21 Dose: Not Given Losartan Potassium (Cozaar -) 100 mg PO DAILY [facility] Last Admin: 10/08/16 11:04 Dose: 100 mg Metoprolol Tartrate (Lopressor -) 50 mg PO HS [facility] Last Admin: 10/08/16 22:11 Dose: 50 mg Metoprolol Tartrate (Lopressor -) 100 mg PO DAILY [facility] Last Admin: 10/08/16 11:04 Dose: 100 mg Morphine Sulfate (Morphine Injection -) 4 mg IVPUSH Q6H PRN PRN Reason: PAIN Last Admin: 10/08/16 16:57 Dose: 4 mg Ondansetron HCl (Zofran Injection) 4 mg IVPB Q6H PRN PRN Reason: NAUSEA AND/OR VOMITING Last Admin: 10/08/16 16:58 Dose: 4 mg Pantoprazole Sodium (Protonix 40mg Ivpb (Pre-Docked)) 40 mg IVPB DAILY [facility] Last Admin: 10/08/16 11:05 Dose: 40 mg Sertraline HCl (Zoloft -) 50 mg PO HS [facility] Last Admin: 10/08/16 22:11 Dose: 50 mg - Objective Vital Signs: Vital Signs Temperature 98.1 F 10/08/16 17:00 Pulse Rate 95 H 10/08/16 17:00 Respiratory Rate 20 10/08/16 17:00 Blood Pressure 131/58 10/08/16 17:00 O2 Sat by Pulse Oximetry (%) 98 10/08/16 10:00 Constitutional: Yes: No Distress, Calm Eyes: Yes: Conjunctiva Clear, EOM Intact HENT: Yes: WNL Neck: Yes: Supple, Trachea Midline Cardiovascular: Yes: Regular Rate and Rhythm, S1, S2 Respiratory: Yes: Regular, CTA Bilaterally Gastrointestinal: Yes: Normal Bowel Sounds, Soft Genitourinary: Yes: WNL Musculoskeletal: Yes: WNL Extremities: Yes: Other (no calf tenderness) Edema: No Peripheral Pulses WNL: Yes Integumentary: Yes: Other (surgical dressing is clean) Neurological: Yes: Alert, Oriented ...Motor Strength: WNL Psychiatric: Yes: Alert, Oriented Labs: CBC, BMP 10/08/16 07:40 10/08/16 07:40 INR, PTT INR 0.97 (0.82-1.09) 10/05/16 18:20 Problem List - Problems (1) Hypertensive cardiovascular disease Assessment/Plan: BP well controlled Code(s): I11.9 - HYPERTENSIVE HEART DISEASE WITHOUT HEART FAILURE Qualifiers: Heart failure presence: without heart failure Qualified Code(s): I11.9 - Hypertensive heart disease without heart failure (2) Fracture, femur closed, shaft Assessment/Plan: Fracture with internal fixation Code(s): S72.309A - UNSP FRACTURE OF SHAFT OF UNSP FEMUR, INIT FOR CLOS FX (3) Affective disorder Code(s): F39 - UNSPECIFIED MOOD [AFFECTIVE] DISORDER (4) Non-insulin dependent type 2 diabetes mellitus Code(s): E11.9 - TYPE 2 DIABETES MELLITUS WITHOUT COMPLICATIONS Assessment/Plan IMP Fracture left femur upper third with internal fixation Diabetes II Anxiety/depressive disorder Hypertension. Plan : PT for ambulation
[2016-10-08] MEDS ORDERED: ASPIRIN 325 MG ENTERIC COATED TABLET (FP) PO STA (23:04)
[2016-10-09] MEDS: morphine CARPU-JECT 4 MG/1 ML DISP.SYRIN IVPUSH PRN ×2 (02:23→15:28)
[2016-10-09] MEDS: DEXTROSE 5%-0.45% SALINE 1,000 ML IV SCH ×2 (08:56→22:36)
[2016-10-09] MEDS: PANTOPRAZOLE SODIUM 40 MG/100 ML PRE-DOCKED IVPB SCH (09:35)
[2016-10-09] MEDS: LOSARTAN POTASSIUM 50 MG TABLET (FP) PO SCH (09:35)
[2016-10-09] MEDS: amLODIPine BESYLATE 5 MG TABLET (FP) PO SCH (09:36)
[2016-10-09] MEDS: METOPROLOL TARTRATE 50 MG TABLET (FP) PO SCH ×2 (09:36→22:03)
[2016-10-09] MEDS: clonazePAM 0.5 MG TABLET PO SCH ×2 (09:36→22:04)
--- NOTE | 2016-10-09 13:48 | PN ---
Progress Note (short form) - Note Progress Note: Ortho Pt seen and examined s/p left IM gamma nail Selected Entries 10/09/16 08:15 Temperature 98.4 F Pulse Rate 95 H Respiratory 20 Rate Blood Pressure 102/59 Laboratory Tests 10/08/16 07:40 WBC 7.9 Hgb 10.0 L D Hct 29.4 L D Plt Count 137 D dressing c/d/i, calf soft, nt nvi a/p PT to start today, PWB dvt ppx pain control d/c planning
[2016-10-09] MEDS ORDERED: ATORVASTATIN CA 10 MG TABLET (FP) ONE (22:01)
[2016-10-09] MEDS ORDERED: ATORVASTATIN CA 20 MG TABLET (FP) ONE (22:01)
[2016-10-09] MEDS: ATORVASTATIN CA PO SCH (22:04)
[2016-10-09] MEDS: SERTRALINE HCL 50 MG TABLET (FP) PO SCH (22:05)
--- NOTE | 2016-10-09 22:56 | PN ---
Progress Note, Physician History of Present Illness: Was able to stand but had severe pain.Denies chest pain or SOB - Current Medication List Current Medications: Active Medications Atorvastatin Calcium 20 mg/ (Atorvastatin Calcium 10 mg) 30 mg PO HS [facility] Last Admin: 10/09/16 22:04 Dose: 30 mg Clonazepam (Klonopin -) 0.25 mg PO BID [facility] Last Admin: 10/09/16 22:04 Dose: 0.25 mg Enoxaparin Sodium (Lovenox -) 40 mg SQ DAILY [facility] Dextrose/Sodium Chloride (D5-1/2ns -) 1,000 mls @ 85 mls/hr IV ASDIR [facility] Last Admin: 10/09/16 22:36 Dose: 85 mls/hr Losartan Potassium (Cozaar -) 100 mg PO DAILY [facility] Last Admin: 10/09/16 09:35 Dose: 100 mg Metoprolol Tartrate (Lopressor -) 50 mg PO HS [facility] Last Admin: 10/09/16 22:03 Dose: 50 mg Metoprolol Tartrate (Lopressor -) 100 mg PO DAILY [facility] Last Admin: 10/09/16 09:36 Dose: 100 mg Morphine Sulfate (Morphine Injection -) 4 mg IVPUSH Q6H PRN PRN Reason: PAIN Last Admin: 10/09/16 15:28 Dose: 4 mg Ondansetron HCl (Zofran Injection) 4 mg IVPB Q6H PRN PRN Reason: NAUSEA AND/OR VOMITING Last Admin: 10/08/16 16:58 Dose: 4 mg Pantoprazole Sodium (Protonix 40mg Ivpb (Pre-Docked)) 40 mg IVPB DAILY [facility] Last Admin: 10/09/16 09:35 Dose: 40 mg Polyethylene Glycol (Miralax (For Daily Use) -) 17 gm PO HS PRN PRN Reason: CONSTIPATION Sertraline HCl (Zoloft -) 50 mg PO [facility] Last Admin: 10/09/16 22:05 Dose: 50 mg - Objective Vital Signs: Vital Signs Temperature 98.5 F 10/09/16 17:00 Pulse Rate 90 10/09/16 17:00 Respiratory Rate 20 10/09/16 20:57 Blood Pressure 117/55 10/09/16 17:00 O2 Sat by Pulse Oximetry (%) 99 10/09/16 20:57 Constitutional: Yes: Well Nourished, No Distress, Calm Eyes: Yes: WNL HENT: Yes: WNL Neck: Yes: Supple Cardiovascular: Yes: Regular Rate and Rhythm, S1, S2 Respiratory: Yes: Regular, CTA Bilaterally Gastrointestinal: Yes: Normal Bowel Sounds, Soft Genitourinary: Yes: WNL Extremities: Yes: WNL Edema: No Integumentary: Yes: WNL Neurological: Yes: Alert, Oriented ...Motor Strength: WNL Psychiatric: Yes: Alert, Oriented Labs: CBC, BMP 10/08/16 07:40 10/08/16 07:40 INR, PTT INR 0.97 (0.82-1.09) 10/05/16 18:20 Problem List - Problems (1) Hypertensive cardiovascular disease Code(s): I11.9 - HYPERTENSIVE HEART DISEASE WITHOUT HEART FAILURE Qualifiers: Heart failure presence: without heart failure Qualified Code(s): I11.9 - Hypertensive heart disease without heart failure (2) Fracture, femur closed, shaft Code(s): S72.309A - UNSP FRACTURE OF SHAFT OF UNSP FEMUR, INIT FOR CLOS FX (3) Affective disorder Code(s): F39 - UNSPECIFIED MOOD [AFFECTIVE] DISORDER (4) Non-insulin dependent type 2 diabetes mellitus Code(s): E11.9 - TYPE 2 DIABETES MELLITUS WITHOUT COMPLICATIONS Assessment/Plan ubdergoing PT by the bedwside. Will start DVT prophylaxis with Lovenox
[2016-10-09] MEDS: ENOXAPARIN NA (PORCINE) 40 MG/0.4 ML DISP.SYRIN SQ SCH (23:49)
[2016-10-09] MEDS: POLYETHYLENE GLYCOL 3350 119 GM BTL PO PRN (23:49)
[2016-10-10] MEDS: morphine CARPU-JECT 4 MG/1 ML DISP.SYRIN IVPUSH PRN ×2 (04:03→15:10)
--- NOTE | 2016-10-10 09:24 | PN ---
Progress Note (short form) - Note Progress Note: Pt seen and examined. She is doing well on POD #3 s/p left femur ORIF. Min c/o pain. She is doing P.T., going well. AVSS H/H stable LLE is grossly NVI, good ROM at the ankle, foot, toes Dressing is CDI Overall pt doing well. Rec P.T., on a TTWB status for the next 4 weeks DC planning
[2016-10-10] MEDS: PANTOPRAZOLE SODIUM 40 MG/100 ML PRE-DOCKED IVPB SCH (09:29)
[2016-10-10] MEDS: METOPROLOL TARTRATE 50 MG TABLET (FP) PO SCH ×2 (09:30→22:38)
[2016-10-10] MEDS: LOSARTAN POTASSIUM 50 MG TABLET (FP) PO SCH (09:30)
[2016-10-10] MEDS: ENOXAPARIN NA (PORCINE) 40 MG/0.4 ML DISP.SYRIN SQ SCH (09:30)
[2016-10-10] MEDS: clonazePAM 0.5 MG TABLET PO SCH ×2 (09:30→22:38)
[2016-10-10] MEDS ORDERED: ASPIRIN 325 MG ENTERIC COATED TABLET (FP) PO SCH (10:00)
[2016-10-10] MEDS: ACETAMINOPHEN 325 MG TABLET (FP) PO PRN (10:53)
[2016-10-10] MEDS: DEXTROSE 5%-0.45% SALINE 1,000 ML IV SCH (10:53)
--- NOTE | 2016-10-10 12:12 | PN ---
Progress Note (short form) - Note Progress Note: S: 76 year old Portugese female with known case of NIDDM,hypertension, hypercholesterolemia, underwent surgery for a fracture of the left femur. Patient denies any shortness of breath, chest pain, or discomfort. No history of lightheadedness or dizziness. Active Medications Generic Name Dose Route Start Last Admin Trade Name Freq PRN Reason Stop Dose Admin Acetaminophen 650 mg 10/10/16 10:08 10/10/16 10:53 Tylenol - PO 650 mg Q4H PRN Administration FEVER OR PAIN Atorvastatin Calcium 20 mg/ 30 mg 10/07/16 22:00 10/09/16 22:04 Atorvastatin Calcium 10 mg PO 30 mg HS [facility] Administration Clonazepam 0.25 mg 10/07/16 22:00 10/10/16 09:30 Klonopin - PO 0.25 mg BID [facility] Administration Enoxaparin Sodium 40 mg 10/09/16 10:00 10/10/16 09:30 Lovenox - SQ 40 mg DAILY [facility] Administration Dextrose/Sodium Chloride 1,000 mls @ 85 mls/hr 10/07/16 17:45 10/10/16 10:53 D5-1/2ns - IV 85 mls/hr ASDIR [facility] Administration Losartan Potassium 100 mg 10/08/16 10:00 10/10/16 09:30 Cozaar - PO 100 mg DAILY [facility] Administration Metoprolol Tartrate 50 mg 10/07/16 22:00 10/09/16 22:03 Lopressor - PO 50 mg HS [facility] Administration Metoprolol Tartrate 100 mg 10/08/16 10:00 10/10/16 09:30 Lopressor - PO 100 mg DAILY [facility] Administration Morphine Sulfate 4 mg 10/07/16 16:34 10/10/16 04:03 Morphine Injection - IVPUSH 4 mg Q6H PRN Administration PAIN Ondansetron HCl 4 mg 10/07/16 19:54 10/08/16 16:58 Zofran Injection IVPB 4 mg Q6H PRN Administration NAUSEA AND/OR VOMITING Pantoprazole Sodium 40 mg 10/07/16 21:15 10/10/16 09:29 Protonix 40mg Ivpb (Pre-Docked) IVPB 40 mg DAILY [facility] Administration Polyethylene Glycol 17 gm 10/09/16 22:47 10/09/16 23:49 Miralax (For Daily Use) - PO 17 mg HS PRN Administration CONSTIPATION Sertraline HCl 50 mg 10/07/16 22:00 10/09/16 22:05 Zoloft - PO 50 mg HS [facility] Administration O: 76 year old female was in no acute distress. No pallor, cyanosis, clubbing, or jaundice. Last Vital Signs Temp Pulse Resp BP Pulse Ox 99.3 F 89 19 109/54 99 10/10/16 05:51 10/10/16 05:51 10/10/16 05:51 10/10/16 05:51 10/09/16 20:57 NECK: Supple, no JVD, negative HJR, carotids were equal and upstrokes were normal, no thyromegaly appreciated. HEART: PMI was in the 5th intercostal space, no heaves or thrills, S1 and S2 were normal. No murmurs or gallops were appreciated. LUNGS: Clear on auscultation bilaterally. ABDOMEN: Soft, nontender, no hepatosplenomegaly appreciated, and no palpable masses were felt. EXTREMITIES: No calf tenderness or dependent edema. Pulses are normal. CBC, BMP 10/08/16 07:40 10/08/16 07:40 Laboratory Results - last 24 hr 10/09/16 10/10/16 16:46 05:20 POC Glucometer 199 179 Impression: 1. Hypertension 2. NIDDM. 3. Hypercholesterolemia 4. S/p repair of left femur 5. Post-op anemia Recommendations: 1. Transfer to orthopedic floor. 2. Continue current medications. 3. Increase ambulation. Documentation prepared by Bety Ramos, acting as a medical billing specialist for Ryan Walker MD.
--- NOTE | 2016-10-10 21:16 | PN ---
Progress Note, Physician History of Present Illness: Continues to have severe pain in thigh while standing none at rest - Current Medication List Current Medications: Active Medications Acetaminophen (Tylenol -) 650 mg PO Q4H PRN PRN Reason: FEVER OR PAIN Last Admin: 10/10/16 10:53 Dose: 650 mg Atorvastatin Calcium 20 mg/ (Atorvastatin Calcium 10 mg) 30 mg PO HS [facility] Last Admin: 10/09/16 22:04 Dose: 30 mg Clonazepam (Klonopin -) 0.25 mg PO BID [facility] Last Admin: 10/10/16 09:30 Dose: 0.25 mg Enoxaparin Sodium (Lovenox -) 40 mg SQ DAILY [facility] Last Admin: 10/10/16 09:30 Dose: 40 mg Dextrose/Sodium Chloride (D5-1/2ns -) 1,000 mls @ 85 mls/hr IV ASDIR [facility] Last Admin: 10/10/16 10:53 Dose: 85 mls/hr Losartan Potassium (Cozaar -) 100 mg PO DAILY [facility] Last Admin: 10/10/16 09:30 Dose: 100 mg Metoprolol Tartrate (Lopressor -) 50 mg PO HS [facility] Last Admin: 10/09/16 22:03 Dose: 50 mg Metoprolol Tartrate (Lopressor -) 100 mg PO DAILY [facility] Last Admin: 10/10/16 09:30 Dose: 100 mg Ondansetron HCl (Zofran Injection) 4 mg IVPB Q6H PRN PRN Reason: NAUSEA AND/OR VOMITING Last Admin: 10/08/16 16:58 Dose: 4 mg Pantoprazole Sodium (Protonix 40mg Ivpb (Pre-Docked)) 40 mg IVPB DAILY [facility] Last Admin: 10/10/16 09:29 Dose: 40 mg Polyethylene Glycol (Miralax (For Daily Use) -) 17 gm PO HS PRN PRN Reason: CONSTIPATION Last Admin: 10/09/16 23:49 Dose: 17 mg Sertraline HCl (Zoloft -) 50 mg PO [facility] Last Admin: 10/09/16 22:05 Dose: 50 mg - Objective Vital Signs: Vital Signs Temperature 97.7 F 10/10/16 18:00 Pulse Rate 82 10/10/16 18:00 Respiratory Rate 19 10/10/16 20:21 Blood Pressure 114/63 10/10/16 18:00 O2 Sat by Pulse Oximetry (%) 98 10/10/16 20:21 Constitutional: Yes: Well Nourished, Calm Eyes: Yes: WNL, Conjunctiva Clear HENT: Yes: WNL Neck: Yes: Supple Cardiovascular: Yes: Regular Rate and Rhythm, S1, S2 Respiratory: Yes: Regular, CTA Bilaterally Gastrointestinal: Yes: Normal Bowel Sounds, Soft Genitourinary: Yes: Bashir Present Musculoskeletal: Yes: Muscle Pain Extremities: Yes: WNL Edema: No Peripheral Pulses WNL: Yes Integumentary: Yes: WNL Neurological: Yes: Alert, Oriented, Cran Nerves II-XII Intact ...Motor Strength: LLE (unable to bend knee in bed) Psychiatric: Yes: Alert, Oriented Labs: CBC, BMP 10/08/16 07:40 10/08/16 07:40 INR, PTT INR 0.97 (0.82-1.09) 10/05/16 18:20 - ....Imaging X-ray: Image Reviewed Problem List - Problems (1) Hypertensive cardiovascular disease Assessment/Plan: BP under good control Code(s): I11.9 - HYPERTENSIVE HEART DISEASE WITHOUT HEART FAILURE Qualifiers: Heart failure presence: without heart failure Qualified Code(s): I11.9 - Hypertensive heart disease without heart failure (2) Fracture, femur closed, shaft Assessment/Plan: Post op day 4 after internal fixation Code(s): S72.309A - UNSP FRACTURE OF SHAFT OF UNSP FEMUR, INIT FOR CLOS FX (3) Affective disorder Code(s): F39 - UNSPECIFIED MOOD [AFFECTIVE] DISORDER (4) Non-insulin dependent type 2 diabetes mellitus Code(s): E11.9 - TYPE 2 DIABETES MELLITUS WITHOUT COMPLICATIONS Assessment/Plan Continue Physical therapy. Continue Lovenox prophylaxis Repeat CBC in Am.
[2016-10-10] MEDS ORDERED: ATORVASTATIN CA 20 MG TABLET (FP) ONE (22:36)
[2016-10-10] MEDS: ATORVASTATIN CA PO SCH (22:37)
[2016-10-10] MEDS ORDERED: ATORVASTATIN CA 10 MG TABLET (FP) ONE (22:37)
[2016-10-10] MEDS: SERTRALINE HCL 50 MG TABLET (FP) PO SCH (22:38)
[2016-10-11] MEDS: ACETAMINOPHEN 325 MG TABLET (FP) PO PRN (06:44)
[2016-10-11 07:38] LABS: BASOPHIL 0.5 % (0-2.0); EOSINOPHIL 3.9 % (0-4.5); MCH 28.8 pg (25.7-33.7); MCHC 34.5 g/dl (32.0-36.0); MEAN CELL VOLUME 83.4 fl (80-96); MEAN PLT VOLUME 7.9 fl (7.5-11.1); NEUTROPHILS 76.1 % (42.8-82.8); PLATELET COUNT 234 K/MM3 (134-434); WHITE BLOOD COUNT 7.4 K/mm3 (4.0-10.0)
[2016-10-11 08:11] LABS: ALBUMIN 2.2 g/dl (3.4-5.0); ANION GAP 7 (8-16); BILIRUBIN,TOTAL 0.9 mg/dL (0.2-1.0); CALCIUM 7.9 mg/dL (8.5-10.1); CO2 30 mmol/L (21-32); CREATININE 0.4 mg/dL (0.55-1.02); GLUCOSE,RANDOM 146 mg/dL (74-106); SGOT/AST 43 U/L (15-37); SGPT/ALT 40 U/L (12-78); TOT PROT 5.1 g/dl (6.4-8.2)
[2016-10-11 08:12] LABS: ALK PHOS 59 U/L (45-117)
--- NOTE | 2016-10-11 08:39 | PN ---
Progress Note (short form) - Note Progress Note: Pt seen, doing fine, min c/o pain left leg. Dressing CDI-leave in place AVSS H/H decreased to 8.4/24.3 LLE NVI, good ROM at the knee, ankle, foot, toes. Overall doing well. DC planning, P.T. Cock up wrist splint for right CTS
[2016-10-11] MEDS: clonazePAM 0.5 MG TABLET PO SCH ×2 (09:51→22:23)
[2016-10-11] MEDS: LOSARTAN POTASSIUM 50 MG TABLET (FP) PO SCH (09:51)
[2016-10-11] MEDS: METOPROLOL TARTRATE 50 MG TABLET (FP) PO SCH ×2 (09:52→22:23)
[2016-10-11] MEDS: PANTOPRAZOLE SODIUM 40 MG/100 ML PRE-DOCKED IVPB SCH (09:53)
[2016-10-11] MEDS: ENOXAPARIN NA (PORCINE) 40 MG/0.4 ML DISP.SYRIN SQ SCH (10:15)
[2016-10-11] MEDS ORDERED: MAGNESIUM HYDROX 2400MG/30ML ORAL SUSPENSION 30 ML CUP PO ONE (11:00)
[2016-10-11] MEDS ORDERED: ATORVASTATIN CA 20 MG TABLET (FP) ONE (22:20)
[2016-10-11] MEDS ORDERED: ATORVASTATIN CA 10 MG TABLET (FP) ONE (22:20)
[2016-10-11] MEDS: SERTRALINE HCL 50 MG TABLET (FP) PO SCH (22:23)
[2016-10-11] MEDS: ACETAMINOPHEN WITH CODEINE 300MG/30MG TABLET PO PRN (22:23)
[2016-10-11] MEDS: ATORVASTATIN CA PO SCH (22:23)
[2016-10-11] MEDS: POLYETHYLENE GLYCOL 3350 119 GM BTL PO PRN (22:24)
--- NOTE | 2016-10-11 23:25 | PN ---
Progress Note, Physician History of Present Illness: C/O pain in the thigh after standing - Current Medication List Current Medications: Active Medications Acetaminophen (Tylenol -) 650 mg PO Q4H PRN PRN Reason: FEVER OR PAIN Last Admin: 10/11/16 06:44 Dose: 650 mg Acetaminophen/Codeine Phosphate (Tylenol # 3 -) 1 tab PO Q4H PRN PRN Reason: FEVER OR PAIN Last Admin: 10/11/16 22:23 Dose: 1 tab Atorvastatin Calcium 20 mg/ (Atorvastatin Calcium 10 mg) 30 mg PO [facility] Last Admin: 10/11/16 22:23 Dose: 30 mg Bisacodyl (Dulcolax -) 10 mg PO ONCE ONE Stop: 10/12/16 07:01 Clonazepam (Klonopin -) 0.25 mg PO BID [facility] Last Admin: 10/11/16 22:23 Dose: 0.25 mg Losartan Potassium (Cozaar -) 100 mg PO DAILY [facility] Last Admin: 10/11/16 09:51 Dose: 100 mg Metoprolol Tartrate (Lopressor -) 50 mg PO HS [facility] Last Admin: 10/11/16 22:23 Dose: 50 mg Metoprolol Tartrate (Lopressor -) 100 mg PO DAILY [facility] Last Admin: 10/11/16 09:52 Dose: 100 mg Ondansetron HCl (Zofran Injection) 4 mg IVPB Q6H PRN PRN Reason: NAUSEA AND/OR VOMITING Last Admin: 10/08/16 16:58 Dose: 4 mg Pantoprazole Sodium (Protonix 40mg Ivpb (Pre-Docked)) 40 mg IVPB DAILY [facility] Last Admin: 10/11/16 09:53 Dose: 40 mg Polyethylene Glycol (Miralax (For Daily Use) -) 17 gm PO HS PRN PRN Reason: CONSTIPATION Last Admin: 10/11/16 22:24 Dose: 17 mg Sertraline HCl (Zoloft -) 50 mg PO [facility] Last Admin: 10/11/16 22:23 Dose: 50 mg - Objective Vital Signs: Vital Signs Temperature 97.2 F L 10/11/16 15:10 Pulse Rate 77 10/11/16 15:10 Respiratory Rate 18 10/11/16 15:10 Blood Pressure 125/76 10/11/16 15:10 O2 Sat by Pulse Oximetry (%) 96 10/11/16 09:00 Constitutional: Yes: Well Nourished, No Distress, Calm Eyes: Yes: Conjunctiva Clear, EOM Intact HENT: Yes: WNL Neck: Yes: WNL, Supple, Trachea Midline Cardiovascular: Yes: Regular Rate and Rhythm, S1, S2 Respiratory: Yes: CTA Bilaterally Gastrointestinal: Yes: Normal Bowel Sounds, Soft Genitourinary: Yes: WNL Musculoskeletal: Yes: Joint Stiffness Edema: No Peripheral Pulses WNL: Yes Integumentary: Yes: WNL Neurological: Yes: Oriented Psychiatric: Yes: Alert, Oriented Labs: CBC, BMP 10/11/16 05:35 10/11/16 05:35 INR, PTT INR 0.97 (0.82-1.09) 10/05/16 18:20 Problem List - Problems (1) Hypertensive cardiovascular disease Assessment/Plan: BP under good control Code(s): I11.9 - HYPERTENSIVE HEART DISEASE WITHOUT HEART FAILURE Qualifiers: Heart failure presence: without heart failure Qualified Code(s): I11.9 - Hypertensive heart disease without heart failure (2) Fracture, femur closed, shaft Assessment/Plan: Internally fixed fracture site Code(s): S72.309A - UNSP FRACTURE OF SHAFT OF UNSP FEMUR, INIT FOR CLOS FX (3) Affective disorder Code(s): F39 - UNSPECIFIED MOOD [AFFECTIVE] DISORDER (4) Non-insulin dependent type 2 diabetes mellitus Code(s): E11.9 - TYPE 2 DIABETES MELLITUS WITHOUT COMPLICATIONS Assessment/Plan Hemoglobin dropped to 8.2 and she was transfused one unit of PRBC. IMP:Fracture left femur Hypertension Diabetes Anemia due to blood loss Plan: Continue PT for ambulation. Transfused one unit PBRC. Repeat CBC in AM
[2016-10-12 06:53] LABS: BASOPHIL 0.5 % (0-2.0); EOSINOPHIL 1.9 % (0-4.5); MCH 27.8 pg (25.7-33.7); MCHC 33.5 g/dl (32.0-36.0); MEAN CELL VOLUME 83.1 fl (80-96); MEAN PLT VOLUME 7.9 fl (7.5-11.1); PLATELET COUNT 308 K/MM3 (134-434); RDW 14.9 % (11.6-15.6); WHITE BLOOD COUNT 10.3 K/mm3 (4.0-10.0)
[2016-10-12] MEDS ORDERED: BISACODYL 5 MG TABLET.DR (FP) PO ONE (07:00)
[2016-10-12] MEDS: METOPROLOL TARTRATE 50 MG TABLET (FP) PO SCH ×2 (09:29→22:01)
[2016-10-12] MEDS: clonazePAM 0.5 MG TABLET PO SCH ×2 (09:29→22:01)
[2016-10-12] MEDS: LOSARTAN POTASSIUM 50 MG TABLET (FP) PO SCH (09:29)
[2016-10-12] MEDS: ACETAMINOPHEN WITH CODEINE 300MG/30MG TABLET PO PRN ×2 (10:03→22:01)
[2016-10-12] MEDS: PANTOPRAZOLE SODIUM 40 MG/100 ML PRE-DOCKED IVPB SCH (11:06)
--- NOTE | 2016-10-12 11:09 | PN ---
Progress Note (short form) - Note Progress Note: Ortho Pt seen and examined s/p left IM gamma nail Selected Entries 10/12/16 05:00 Temperature 99.2 F Pulse Rate 81 Respiratory 20 Rate Blood Pressure 140/64 Laboratory Tests 10/12/16 06:10 WBC 10.3 H D Hgb 9.7 L D Hct 28.8 L D Plt Count 308 D dressing c/d/i, calf soft, nt nvi a/p PT dvt ppx pain control d/c planning
--- NOTE | 2016-10-12 11:32 | PN ---
Progress Note (short form) - Note Progress Note: S: 76 year old Yi female, was admitted with traumatic fracture of the left femur, with known case of hypertension, hypercholesterolemia, NIDDM, underwent surgery for a fracture of the left femur. Patient denies any history of lightheadedness or dizziness. No shortness of breath, chest pain, or discomfort. The patient is out of bed and denies any incisional pain. Active Medications Generic Name Dose Route Start Last Admin Trade Name Freq PRN Reason Stop Dose Admin Acetaminophen 650 mg 10/10/16 10:08 10/11/16 06:44 Tylenol - PO 650 mg Q4H PRN Administration FEVER OR PAIN Acetaminophen/Codeine Phosphate 1 tab 10/11/16 21:55 10/12/16 10:03 Tylenol # 3 - PO 1 tab Q4H PRN Administration FEVER OR PAIN Atorvastatin Calcium 20 mg/ 30 mg 10/07/16 22:00 10/11/16 22:23 Atorvastatin Calcium 10 mg PO 30 mg HS DMTIRIY Administration Clonazepam 0.25 mg 10/07/16 22:00 10/12/16 09:29 Klonopin - PO 0.25 mg BID DMITRIY Administration Losartan Potassium 100 mg 10/08/16 10:00 10/12/16 09:29 Cozaar - PO 100 mg DAILY DMITRIY Administration Metoprolol Tartrate 50 mg 10/07/16 22:00 10/11/16 22:23 Lopressor - PO 50 mg HS DMITRIY Administration Metoprolol Tartrate 100 mg 10/08/16 10:00 10/12/16 09:29 Lopressor - PO 100 mg DAILY DMITRIY Administration Ondansetron HCl 4 mg 10/07/16 19:54 10/08/16 16:58 Zofran Injection IVPB 4 mg Q6H PRN Administration NAUSEA AND/OR VOMITING Pantoprazole Sodium 40 mg 10/12/16 11:30 Protonix - PO DAILY DMITRIY Polyethylene Glycol 17 gm 10/09/16 22:47 10/11/16 22:24 Miralax (For Daily Use) - PO 17 mg HS PRN Administration CONSTIPATION Sertraline HCl 50 mg 10/07/16 22:00 10/11/16 22:23 Zoloft - PO 50 mg HS DMITRIY Administration O: 76 year old female was in no acute distress, no pallor, cyanosis, clubbing, or jaundice. Last Vital Signs Temp Pulse Resp BP Pulse Ox 99.2 F 81 20 140/64 95 10/12/16 05:00 10/12/16 05:00 10/12/16 05:00 10/12/16 05:00 10/11/16 21:00 Neck: Supple, no JVD, negative HJR, carotids were equal and upstrokes were normal, no thyromegaly appreciated. Heart: PMI was in the 5th intercostal space, no heaves or thrills, S1 and S2 were normal. No murmurs or gallops were appreciated. Lungs: Clear on auscultation bilaterally. Abdomen: Soft, nontender, no hepatosplenomegaly appreciated, and no palpable masses were felt. Extremities: No calf tenderness, 1+ dependent edema involving the left ankle. Pulses are normal. CBC, BMP 10/12/16 06:10 10/11/16 05:35 Laboratory Results - last 24 hr 10/11/16 10/11/16 10/11/16 10:40 12:02 15:37 WBC RBC Hgb Hct MCV MCH MCHC RDW Plt Count MPV Neutrophils % Lymphocytes % Monocytes % Eosinophils % Basophils % POC Glucometer 125 138 Blood Type O POSITIVE Antibody Screen Negative Crossmatch See Detail 10/12/16 06:10 WBC 10.3 H D RBC 3.47 L Hgb 9.7 L D Hct 28.8 L D MCV 83.1 MCH 27.8 MCHC 33.5 RDW 14.9 Plt Count 308 D MPV 7.9 Neutrophils % 82.0 Lymphocytes % 7.8 L D Monocytes % 7.8 Eosinophils % 1.9 Basophils % 0.5 POC Glucometer Blood Type Antibody Screen Crossmatch Impression: (1) Hypertension, Hypertensive cardiovascular disease, currently normotensive Code(s): I11.9 - HYPERTENSIVE HEART DISEASE WITHOUT HEART FAILURE Qualifiers: Heart failure presence: without heart failure Qualified Code(s): I11.9 - Hypertensive heart disease without heart failure (2) Non-insulin dependent type 2 diabetes mellitus Code(s): E11.9 - TYPE 2 DIABETES MELLITUS WITHOUT COMPLICATIONS (3) Hypercholesteremia Code(s): E78.00 - PURE HYPERCHOLESTEROLEMIA, UNSPECIFIED (4) Postoperative anemia Code(s): D64.9 - ANEMIA, UNSPECIFIED (5) Fracture, femur closed, shaft Code(s): S72.309A - UNSP FRACTURE OF SHAFT OF UNSP FEMUR, INIT FOR CLOS FX (6) History of depression Recommendations: 1. Continue current therapy. 2. Physiotherapy. 3. Follow up CBC. Attestation: Documentation prepared by Armani Gonzalez, acting as director of graduate medical education for Ryan Walker MD.
[2016-10-12] MEDS: PANTOPRAZOLE 40 MG TABLET (FP) PO SCH (13:03)
[2016-10-12] MEDS ORDERED: BISACODYL 10 MG SUPP.RECT RC ONE (16:49)
--- NOTE | 2016-10-12 16:56 | PN ---
Progress Note (short form) - Note Progress Note: cover for Dr Barron Current Medications Acetaminophen (Tylenol -) 650 mg PO Q4H PRN PRN Reason: FEVER OR PAIN Last Admin: 10/11/16 06:44 Dose: 650 mg Acetaminophen/Codeine Phosphate (Tylenol # 3 -) 1 tab PO Q4H PRN PRN Reason: FEVER OR PAIN Last Admin: 10/12/16 10:03 Dose: 1 tab Atorvastatin Calcium 20 mg/ (Atorvastatin Calcium 10 mg) 30 mg PO HS [facility] Last Admin: 10/11/16 22:23 Dose: 30 mg Clonazepam (Klonopin -) 0.25 mg PO BID [facility] Last Admin: 10/12/16 09:29 Dose: 0.25 mg Losartan Potassium (Cozaar -) 100 mg PO DAILY [facility] Last Admin: 10/12/16 09:29 Dose: 100 mg Metoprolol Tartrate (Lopressor -) 50 mg PO HS [facility] Last Admin: 10/11/16 22:23 Dose: 50 mg Metoprolol Tartrate (Lopressor -) 100 mg PO DAILY [facility] Last Admin: 10/12/16 09:29 Dose: 100 mg Ondansetron HCl (Zofran Injection) 4 mg IVPB Q6H PRN PRN Reason: NAUSEA AND/OR VOMITING Last Admin: 10/08/16 16:58 Dose: 4 mg Pantoprazole Sodium (Protonix -) 40 mg PO DAILY [facility] Last Admin: 10/12/16 13:03 Dose: 40 mg Polyethylene Glycol (Miralax (For Daily Use) -) 17 gm PO HS PRN PRN Reason: CONSTIPATION Last Admin: 10/11/16 22:24 Dose: 17 mg Sertraline HCl (Zoloft -) 50 mg PO HS [facility] Last Admin: 10/11/16 22:23 Dose: 50 mg Laboratory Results - last 24 hr 10/12/16 06:10 WBC 10.3 H D RBC 3.47 L Hgb 9.7 L D Hct 28.8 L D MCV 83.1 MCH 27.8 MCHC 33.5 RDW 14.9 Plt Count 308 D MPV 7.9 Neutrophils % 82.0 Lymphocytes % 7.8 L D Monocytes % 7.8 Eosinophils % 1.9 Basophils % 0.5 Vital Signs Temperature 98.2 F 08/04/17 14:00 Pulse Rate 75 10/12/16 14:00 Respiratory Rate 17 10/12/16 14:00 Blood Pressure 149/70 10/12/16 10:00 O2 Sat by Pulse Oximetry (%) 96 10/12/16 09:00 CC; no BMs; feels bloated ```````````````````````` skin--good color heart--RR abd--soft, mildly distended, BS+ ext--dressing Lt hip; some edema of the LLE; pulses felt neuro--fully alert; lucid, coherent, no deficits `````````````````````````````````````````` Summ > Lt Hip Fx--s/p int fixation; for rehab in AM if VSS > Htn--BP okay, cont current meds > DM--has been off glimepride since pre-op; will resume once d/c'd > constip--on laxatives but has not yet had a BM, will Rx duclox supp. > Anemia--post op bleed while on Lovenox; Hgb now stable; repeat in Am ~~~~~~~~~~~~~~~~~~~~~~~~~ Dr Tabares (for Dr Barron) Problem List - Problems (1) Hip fracture Code(s): S72.009A - FRACTURE OF UNSP PART OF NECK OF UNSP FEMUR, INIT Qualifiers: Encounter type: initial encounter Fracture type: closed Laterality : left Qualified Code(s): S72.002A - Fracture of unspecified part of neck of left femur, initial encounter for closed fracture (2) Hypertensive cardiovascular disease Code(s): I11.9 - HYPERTENSIVE HEART DISEASE WITHOUT HEART FAILURE Qualifiers: Heart failure presence: without heart failure Qualified Code(s): I11.9 - Hypertensive heart disease without heart failure (3) Diabetes Code(s): E11.9 - TYPE 2 DIABETES MELLITUS WITHOUT COMPLICATIONS Qualifiers: Diabetes mellitus type: type 2 Diabetes mellitus complication status: without complication (4) Affective disorder Code(s): F39 - UNSPECIFIED MOOD [AFFECTIVE] DISORDER
[2016-10-12] MEDS ORDERED: ATORVASTATIN CA 20 MG TABLET (FP) ONE (21:59)
[2016-10-12] MEDS ORDERED: ATORVASTATIN CA 10 MG TABLET (FP) ONE (21:59)
[2016-10-12] MEDS: ATORVASTATIN CA PO SCH (22:01)
[2016-10-12] MEDS: SERTRALINE HCL 50 MG TABLET (FP) PO SCH (22:02)
[2016-10-13 07:44] LABS: MCH 28.2 pg (25.7-33.7); MCHC 33.7 g/dl (32.0-36.0); MEAN CELL VOLUME 83.5 fl (80-96); MEAN PLT VOLUME 7.8 fl (7.5-11.1); PLATELET COUNT 323 K/MM3 (134-434); RDW 15.2 % (11.6-15.6)
[2016-10-13] MEDS: ACETAMINOPHEN WITH CODEINE 300MG/30MG TABLET PO PRN (07:45)
[2016-10-13 08:12] LABS: ANION GAP 9 (8-16); CALCIUM 8.3 mg/dL (8.5-10.1); CO2 31 mmol/L (21-32); CREATININE 0.4 mg/dL (0.55-1.02); GLUCOSE,RANDOM 129 mg/dL (74-106)
[2016-10-13] MEDS: LOSARTAN POTASSIUM 50 MG TABLET (FP) PO SCH (10:44)
[2016-10-13] MEDS: PANTOPRAZOLE 40 MG TABLET (FP) PO SCH (10:44)
[2016-10-13] MEDS: clonazePAM 0.5 MG TABLET PO SCH (10:44)
[2016-10-13] MEDS: METOPROLOL TARTRATE 50 MG TABLET (FP) PO SCH (10:44)
--- NOTE | 2016-10-13 11:35 | PN ---
Progress Note (short form) - Note Progress Note: Ortho Pt seen and examined s/p left IM gamma nail Selected Entries 10/13/16 01:54 Temperature 98.7 F Pulse Rate 74 Respiratory 21 Rate Blood Pressure 111/63 Laboratory Tests 10/13/16 07:31 WBC 9.0 Hgb 9.9 L Hct 29.5 L Plt Count 323 dressing c/d/i, calf soft, nt nvi a/p PT dvt ppx pain control d/c planning
[2016-10-13 12:08] VITALS: TEMP 98
--- NOTE | 2016-10-13 12:22 | DS ---
Physical Examination Vital Signs: Vital Signs Temperature 98.0 F 10/13/16 10:00 Pulse Rate 101 H 10/13/16 10:00 Respiratory Rate 20 10/13/16 10:00 Blood Pressure 136/67 10/13/16 10:00 O2 Sat by Pulse Oximetry (%) 97 10/12/16 20:48 Constitutional: Yes: Well Nourished, No Distress Eyes: Yes: Conjunctiva Clear Cardiovascular: Yes: Regular Rate and Rhythm Respiratory: Yes: Regular Gastrointestinal: Yes: Soft Edema: Yes Edema: LLE: 2+ (post op) Peripheral Pulses WNL: Yes Integumentary: Yes: Incision (LLE) Wound/Incision: Yes: Other (w/ dressing) Neurological: Yes: Alert, Oriented ...Motor Strength: WNL Psychiatric: Yes: WNL Labs: CBC, BMP 10/13/16 07:31 10/13/16 07:31 Discharge Summary Reason For Visit: FRACTURE OF HIP Current Active Problems Affective disorder (Acute)--->cont psych meds Diabetes (Acute)------------------------------>check finger stick sugars BID before meals; if Glucose over 140 start Glimepride 1mg Qd Fracture, femur closed, shaft (Acute)-----s/p Orif; will need P/T, and ortho f/ u Hypercholesteremia (Acute)---------------------------------------------------> cont Statin Hypertensive cardiovascular disease (Acute)----> if BP rises, then start Norvasc 5mg Qd; medicare insurance specialist is Dr Walker Hypotension (Acute)---------------------------->resolved Non-insulin dependent type 2 diabetes mellitus (Acute)-------> Check BGM BID a c ; Keep on Diabetic diet Postoperative anemia (Acute)------------------> H/h stable; check CBC & BMP in 7 days Procedures: Principal: Lt ORIF Other Procedures: PC transfusion Hospital Course: sustained Lt fem Fx 2nd mechanical fall; underwent internal fixation. Course complicated by post Op blood loss which stabilized once Lovenox was stopped. BP was stable without use of Norvasc; Blood sugar remains under 140 without Glimepiride. Condition: Improved - Instructions Diet, Activity, Other Instructions: low sodium; dietetic diet Physical therapy check CBC & Chemistry ---add Glimepiride if Glucose rises above 140 ---add Norvasc if SBP rises ---Hold lasix if Bun rises Referrals: Dereje Barron MD [Primary Care Provider] - [facility] - Home Medications Comprehensive Discharge Medication List: Ambulatory Orders Atorvastatin Ca [Lipitor] 30 mg PO HS 01/15/14 Clonazepam 0.25 mg PO BID 01/15/14 Losartan Potassium 100 mg PO DAILY 01/15/14 Furosemide 20 mg PO DAILY 10/05/16 Acetaminophen W/ Codeine #3 [Tylenol # 3 -] 1 tab PO Q4H PRN #14 tablet MDD 4 Metoprolol Tartrate [Lopressor -] 50 mg PO HS tablet 10/13/16 Metoprolol Tartrate [Lopressor -] 100 mg PO DAILY tablet 10/13/16 Pantoprazole Sodium [Protonix -] 40 mg PO DAILY #14 tab 10/13/16 Polyethylene Glycol 3350 [Miralax 119 gm Btl -] 17 gm PO HS PRN #0 bottle Sertraline HCl [Zoloft -] 50 mg PO HS tablet 10/13/16
[2016-10-13 14:45] VITALS: BP 119/59; PULSE 81
== END 2016-10-13 17:49 | DRG 481 ==
LOC: JER 17:46 → JERBED 18:33 → J6S 21:10 → J4W 10-07 19:08 → J6S 10-11 22:03
PROVIDERS: ADMIT Internal Medicine Hematology & Oncology; ATTEND Internal Medicine Hematology & Oncology
PROC: 30233N1 Transfusion of Nonautologous Red Blood Cells into Peripheral Vein, Percutaneous Approach (ICD-10-PCS; 2016-10-07)
PROC: 0QSC06Z Reposition Left Lower Femur with Intramedullary Internal Fixation Device, Open Approach (ICD-10-PCS; principal; 2016-10-07 12:30)
DX: S72.002A Fracture of unspecified part of neck of left femur, initial encounter for closed fracture (principal); D62 Acute posthemorrhagic anemia; I11.9 Hypertensive heart disease without heart failure; E78.5 Hyperlipidemia, unspecified; E11.9 Type 2 diabetes mellitus without complications; Z88.0 Allergy status to penicillin; F41.8 Other specified anxiety disorders; M19.90 Unspecified osteoarthritis, unspecified site; F39 Unspecified mood [affective] disorder; W18.39XA Other fall on same level, initial encounter; Y93.89 Activity, other specified; Y92.096 Garden or yard of other non-institutional residence as the place of occurrence of the external cause; K59.09 Other constipation
CPT/HCPCS: 36415; 36430; 71010-TC; 73523-TC; 76000-TC; 80048; 80053; 81003; 84484; 85025; 85027; 85610; 86850; 86900; 86901; 86922; 87040; 87086; 93005; 93010; 94760; 97116-GP; 97161-GP; 99285-25; P9038; P9058

== ENCOUNTER 2018-01-19 15:44 | Emergency (ER) | payer OTHER ==
[2018-01-19 15:55] VITALS: BP 173/88; PULSE 77; TEMP 98.4; BMI 28.8
[2018-01-19] MEDS ORDERED: DIPHTH,PERTUSS(ACELL),TET 0.5 ML DISP.SYRIN IM ONE (16:31)
--- NOTE | 2018-01-19 16:36 | PDOC ---
History of Present Illness - General Chief Complaint: Injury Stated Complaint: LACERATION Time Seen by Provider: 01/19/18 16:03 History Source: Patient Exam Limitations: Clinical Condition - History of Present Illness Initial Comments: 01/19/18 16:39 Patient with no significant past medical history presenting with laceration to left thumb from a blender/braze applicator an hour ago. Patient does not recall last tetanus vaccine. Timing/Duration: 1 hour Past History - Past Medical History Allergies/Adverse Reactions: Allergies Allergy/AdvReac Type Severity Reaction Status Date / Time Penicillins Allergy Severe Verified 10/05/16 18:01 Home Medications: Ambulatory Orders Atorvastatin Ca [Lipitor] 30 mg PO HS 01/15/14 Clonazepam 0.25 mg PO BID 01/15/14 Losartan Potassium 100 mg PO DAILY 01/15/14 Furosemide 20 mg PO DAILY 10/05/16 Acetaminophen W/ Codeine #3 [Tylenol # 3 -] 1 tab PO Q4H PRN #14 tablet MDD 4 Metoprolol Tartrate [Lopressor -] 50 mg PO HS tablet 10/13/16 Metoprolol Tartrate [Lopressor -] 100 mg PO DAILY tablet 10/13/16 Pantoprazole Sodium [Protonix -] 40 mg PO DAILY #14 tab 10/13/16 Polyethylene Glycol 3350 [Miralax 119 gm Btl -] 17 gm PO HS PRN #0 bottle Sertraline HCl [Zoloft -] 50 mg PO HS tablet 10/13/16 Ibuprofen 800 mg PO Q8H PRN #20 tablet 01/19/18 Mupirocin Ointment [Bactroban 2% Ointment -] 1 applic TP BID #1 tube 01/19/18 Sulfamethoxazole/Trimethoprim [Bactrim Ds -] 1 tab PO BID #14 tablet 01/19/18 Anemia: No Asthma: No Cancer: No Cardiac Disorders: No CVA: No COPD: No CHF: No Dementia: No Diabetes: Yes (TYPE 2) GI Disorders: No Disorders: No HTN: Yes Hypercholesterolemia: Yes Liver Disease: No Seizures: No Thyroid Disease: No - Surgical History Abdominal Surgery: No Appendectomy: No Cardiac Surgery: No Cholecystectomy: No Lung Surgery: No Neurologic Surgery: No Orthopedic Surgery: Yes (PARTIAL KNEE REPLACEMENT RIGHT 2009) - Suicide/Smoking/Psychosocial Hx Smoking History: Never smoked Have you smoked in the past 12 months: No Hx Alcohol Use: No Drug/Substance Use Hx: No Substance Use Type: None Hx Substance Use Treatment: No Review of Systems - Review of Systems Able to Perform ROS?: Yes Is the patient limited Lithuanian proficient: No Constitutional: No: Weakness Respiratory: No: Symptoms reported Cardiac (ROS): No: Symptoms Reported ABD/GI: No: Symptoms Reported Integumentary: Yes: Other (laceration and bleeding to left thumb) Neurological: No: Numbness, Paresthesia, Tingling All Other Systems: Reviewed and Negative *Physical Exam - Vital Signs Last Vital Signs Temp Pulse Resp BP Pulse Ox 98.4 F 77 18 173/88 H 99 01/19/18 15:45 01/19/18 15:45 01/19/18 15:45 01/19/18 15:45 01/19/18 15:45 - Physical Exam Comments: 01/19/18 16:53 GENERAL: Well developed, well nourished. Awake and alert. No acute distress. CARDIOVASCULAR: Regular rate and rhythm. No murmurs, rubs, or gallops. PULMONARY: No evidence of respiratory distress. Lungs clear to auscultation bilaterally. No wheezing, rales or rhonchi. ABDOMINAL: Soft. Non-tender. Non-distended. No rebound or guarding. No organomegaly. Normoactive bowel sounds SKIN:5 cm laceration to plantar aspect of the distal phalange of left thumb. Another 2 cm laceration to lateral side of the distal phalange of left thumb. moderate bleeding from both side NEUROLOGICAL: Alert, awake, appropriate. No motor or sensory deficits left thumb. Gait is normal without ataxia. PSYCHIATRIC: Cooperative. Good eye contact. Appropriate mood and affect. 01/19/18 16:54 General Appearance: Yes: Nourished, Appropriately Dressed, Mild Distress Procedures - Laceration/Wound Repair Left Anterior Distal Plantar Finger 1st digit Wound Length: 5.0 to 7.5 cm (7cm) Wound Explored: clean, no foreign body present Wound's Depth, Shape: into muscle Irrigated w/ Saline: Yes Betadine Prep: Yes Anesthesia: 1% Lidocaine (2cc) Amount of Anesthetic (ccs): 2 Wound Repaired With: Sutures Suture Size/Type: 4:0, nylon Number of Sutures: 8 Layer Closure: No Sterile Dressing Applied: Yes Splint Applied: No Sling Applied: No Medical Decision Making - Medical Decision Making 01/19/18 16:37 Patient with no significant past medical history presenting with laceration to left thumb from a blender/braze applicator an hour ago. Patient does not recall last tetanus vaccine. Exam significant for a 5 cm laceration to plantar aspect of the distal phalange of left thumb. Another 2 cm laceration to lateral side of the distal phalange of left thumb. Wound cleaned and closed with 8 interrupted sutures. Tetanus vaccine given. Patient discharged home on Bactrim with follow-up in one week for suture removal 01/19/18 16:56 01/19/18 16:58 *DC/Admit/Observation/Transfer Diagnosis at time of Disposition: Laceration of left thumb without damage to nail Qualifiers: Encounter type: initial encounter Foreign body presence: without foreign body Qualified Code(s): S61.012A - Laceration without foreign body of left thumb without damage to nail, initial encounter - Discharge Dispostion Disposition: HOME Condition at time of disposition: Stable Decision to Admit order: No - Prescriptions Prescriptions: Ibuprofen 800 mg PO Q8H PRN #20 tablet PRN Reason: Pain Mupirocin Ointment [Bactroban 2% Ointment -] 1 applic TP BID #1 tube Sulfamethoxazole/Trimethoprim [Bactrim Ds -] 1 tab PO BID #14 tablet - Referrals Referrals: Dereje Barron MD [Primary Care Provider] - - Patient Instructions Printed Discharge Instructions: How to Care for a Laceration After Repair Additional Instructions: Take prescribed medications as prescribed. Apply prescribed topical mupirocin to wound twice a day. Follow-up in one week for suture Removal - Post Discharge Activity
== END 2018-01-19 16:42 | disposition home or self-care (01) ==
LOC: JERFT 15:44
PROC: 3E0234Z Introduction of Serum, Toxoid and Vaccine into Muscle, Percutaneous Approach (ICD-10-PCS; principal; 2018-01-19)
PROC: 0JQK0ZZ Repair Left Hand Subcutaneous Tissue and Fascia, Open Approach (ICD-10-PCS; 2018-01-19)
DX: S61.012A Laceration without foreign body of left thumb without damage to nail, initial encounter (principal); W29.0XXA Contact with powered kitchen appliance, initial encounter; Y93.G1 Activity, food preparation and clean up; Y92.010 Kitchen of single-family (private) house as the place of occurrence of the external cause; Y99.8 Other external cause status; I10 Essential (primary) hypertension; E11.9 Type 2 diabetes mellitus without complications; E78.00 Pure hypercholesterolemia, unspecified
CPT/HCPCS: 12002; 90471; 90715; 99282-25

== ENCOUNTER 2018-01-26 11:18 | Emergency (ER) | payer OTHER ==
[2018-01-26 11:24] VITALS: BP 174/68; PULSE 63; TEMP 97; BMI 28.8
--- NOTE | 2018-01-26 12:23 | PDOC ---
Suture Removal/Wound Check HPI - History of Present Illness Chief Complaint: Suture/Staple Removal(Here) Stated Complaint: SUTURE REMOVAL, SUTURED HERE Time Seen by Provider: 01/26/18 12:08 History Source: Yes: Patient Exam Limitations: Yes: No Limitations Treated at: [facility] ED Date of Last ED visit: 01/19/18 - Previous ED Treatment Type of procedure performed on last visit: Yes: Laceration Repair Tetanus Immunization: Yes: Given at last ED visit Past History - Past Medical History Allergies/Adverse Reactions: Allergies Allergy/AdvReac Type Severity Reaction Status Date / Time Penicillins Allergy Severe Verified 01/26/18 11:24 Home Medications: Ambulatory Orders Atorvastatin Ca [Lipitor] 30 mg PO HS 01/15/14 Clonazepam 0.25 mg PO BID 01/15/14 Losartan Potassium 100 mg PO DAILY 01/15/14 Furosemide 20 mg PO DAILY 10/05/16 Acetaminophen W/ Codeine #3 [Tylenol # 3 -] 1 tab PO Q4H PRN #14 tablet MDD 4 Metoprolol Tartrate [Lopressor -] 50 mg PO HS tablet 10/13/16 Metoprolol Tartrate [Lopressor -] 100 mg PO DAILY tablet 10/13/16 Pantoprazole Sodium [Protonix -] 40 mg PO DAILY #14 tab 10/13/16 Polyethylene Glycol 3350 [Miralax 119 gm Btl -] 17 gm PO HS PRN #0 bottle Sertraline HCl [Zoloft -] 50 mg PO HS tablet 10/13/16 Ibuprofen 800 mg PO Q8H PRN #20 tablet 01/19/18 Mupirocin Ointment [Bactroban 2% Ointment -] 1 applic TP BID #1 tube 01/19/18 Sulfamethoxazole/Trimethoprim [Bactrim Ds -] 1 tab PO BID #14 tablet 01/19/18 Anemia: No Asthma: No Cancer: No Cardiac Disorders: No CVA: No COPD: No CHF: No Dementia: No Diabetes: Yes (TYPE 2) GI Disorders: No Disorders: No HTN: Yes Hypercholesterolemia: Yes Liver Disease: No Seizures: No Thyroid Disease: No - Surgical History Abdominal Surgery: No Appendectomy: No Cardiac Surgery: No Cholecystectomy: No Lung Surgery: No Neurologic Surgery: No Orthopedic Surgery: Yes (PARTIAL KNEE REPLACEMENT RIGHT 2008) - Suicide/Smoking/Psychosocial Hx Smoking History: Never smoked Have you smoked in the past 12 months: No Hx Alcohol Use: No Drug/Substance Use Hx: No Substance Use Type: None Hx Substance Use Treatment: No *Physical Exam - Vital Signs Last Vital Signs Temp Pulse Resp BP Pulse Ox 97 F L 63 18 174/68 H 99 01/26/18 11:21 01/26/18 11:21 01/26/18 11:21 01/26/18 11:21 01/26/18 11:21 Medical Decision Making - Medical Decision Making A/P: 77 y/o female here for suture removal from left thumb. 8 sutures removed. Margins remained intact. Patient denies any fevers, etc. *DC/Admit/Observation/Transfer Diagnosis at time of Disposition: Encounter for removal of sutures - Discharge Dispostion Disposition: HOME Condition at time of disposition: Good - Referrals Referrals: Dereje Barron MD [Primary Care Provider] - - Patient Instructions Printed Discharge Instructions: DI for Suture Removal - Post Discharge Activity
== END 2018-01-26 12:38 | disposition home or self-care (01) ==
LOC: JERFT 11:18
DX: Z48.817 Encounter for surgical aftercare following surgery on the skin and subcutaneous tissue (principal); Z48.02 Encounter for removal of sutures
CPT/HCPCS: 99281-25